=== PATIENT | male | born 1935 | race African-American/Black ===

== ENCOUNTER 2019-01-06 18:05 | Inpatient (IN) | payer MEDICARE, OTHER ==
[~2019-01-06] VITALS: Ht 175.3 cm; Wt 75.0 kg
[~2019-01-06 18:05] MED LIST: METF850T8 PO
[2019-01-06] MEDS ORDERED: IV NORMAL SALINE 1000ML BAG 1,000 ML IV ONE (18:30)
[2019-01-06] MEDS ORDERED: fentaNYL PF VIAL 100 MCG/2 ML VIAL IV ONE (18:30)
--- NOTE | 2019-01-06 18:49 | PHYS DOC ---
Past Medical History Past Medical History: Cancer, CVA, Diabetes-Type II, High Cholesterol, Hypertension, Other Additional Past Medical Histor: prostate CA Past Surgical History: Other Additional Past Surgical Histo: cardiac stent Alcohol Use: None Drug Use: None Adult General Chief Complaint Chief Complaint: WRIST PAIN HPI HPI Patient is a 83 year old male who presents with right wrist pain after a FOOSH. Patient stated he was getting up to go to the bathroom at home and lost his balance while reaching for his walker. He fell towards the wall, held his hand out to catch himself, and fell down onto the floor on his outstretched right hand. He rated the pain as a 10/10 throbbing pain that does not radiate. Patient does not remember hitting his head or losing consciousness. He takes a blood thinner and blood pressure medicine but cannot member the names. Denies neck pain. Family reports concern for patient's generalized weakness. Review of Systems Review of Systems Constitutional: Denies fever or chills [] Eyes: Denies change in visual acuity, redness, or eye pain [] HENT: Denies nasal congestion or sore throat [] Respiratory: Denies cough or shortness of breath [] Cardiovascular: Denies chest pain or palpitations[] GI: Denies abdominal pain, nausea, vomiting, bloody stools or diarrhea [] : Denies dysuria or hematuria [] Musculoskeletal: Admits right wrist pain. Denies elbow or shoulder pain Integument: Admits to abrasion on right hyperthenar eminence Neurologic: Denies headache, focal weakness or sensory changes [] Complete systems were reviewed and found to be within normal limits, except as documented in this note. Current Medications Current Medications Current Medications Medications (Trade) Dose Ordered Sig/[facility] Start Time Stop Time Status Last Admin Dose Admin Fentanyl Citrate (Fentanyl 2ml Vial) 50 mcg 1X ONCE 01/06/19 18:30 01/06/19 18:34 DC 01/06/19 19:30 50 MCG Sodium Chloride 1,000 ml @ 1,000 mls/hr 1X ONCE 01/06/19 18:30 01/06/19 19:29 DC 01/06/19 19:32 1,000 MLS/HR Allergies Allergies Allergies Coded Allergies Type Severity Reaction Last Updated Verified No Known Drug Allergies 06/13/14 No Physical Exam Physical Exam Constitutional: Well developed, well nourished, no acute distress, non-toxic appearance. [] HENT: Normocephalic, atraumatic, bilateral external ears normal, oropharynx moist, no oral exudates, nose normal. [] Eyes: EOMI, conjunctiva normal, no discharge. [] Neck: Normal range of motion, no midline tenderness, supple, no stridor. [] Cardiovascular: Heart rate regular, regular rhythm, no murmur [] Lungs & Thorax: Bilateral breath sounds clear to auscultation [] Abdomen: soft, no tenderness, no masses, no pulsatile masses. 2 Band-Aids on abdomen where he receives shots for prostate cancer.[] Skin: Warm, dry, no erythema, no rash. Straight 3cm superficial abrasion right hypo-thenar eminence extending down into wrist[] Back: No tenderness, no CVA tenderness. [] Extremities: Right wrist tenderness on palpation and attempted ROM, Radial pulse +2, sensation intact, Neurologic: Alert and oriented X 3, normal motor function, normal sensory function, no focal deficits noted. Strength to BLE 4/5. Psychologic: Affect normal, judgement normal, mood normal. [] Current Patient Data Vital Signs Vital Signs Date Time Temp Pulse Resp B/P (MAP) Pulse Ox O2 Delivery O2 Flow Rate FiO2 01/06/19 22:00 72 163/75 (104) 95 Room Air 01/06/19 19:30 16 01/06/19 18:05 97.6 97.6 Lab Values Laboratory Tests Test 01/06/19 18:45 01/06/19 20:00 White Blood Count 8.2 x10^3/uL (4.0-11.0) Red Blood Count 4.37 x10^6/uL (4.30-5.70) Hemoglobin 13.9 g/dL (13.0-17.5) Hematocrit 41.4 % (39.0-53.0) Mean Corpuscular Volume 95 fL (79-100) Mean Corpuscular Hemoglobin 32 pg (25-35) Mean Corpuscular Hemoglobin Concent 34 g/dL (31-37) Red Cell Distribution Width 14.3 % (11.5-14.5) Platelet Count 227 x10^3/uL (140-400) Neutrophils (%) (Auto) 76 % (31-73) H Lymphocytes (%) (Auto) 12 % (24-48) L Monocytes (%) (Auto) 9 % (0-9) Eosinophils (%) (Auto) 2 % (0-3) Basophils (%) (Auto) 0 % (0-3) Neutrophils # (Auto) 6.2 x10^3uL (1.8-7.7) Lymphocytes # (Auto) 1.0 x10^3/uL (1.0-4.8) Monocytes # (Auto) 0.8 x10^3/uL (0.0-1.1) Eosinophils # (Auto) 0.1 x10^3/uL (0.0-0.7) Basophils # (Auto) 0.0 x10^3/uL (0.0-0.2) Prothrombin Time 12.9 SEC (11.7-14.0) Prothrombin Time INR 1.0 (0.8-1.1) PTT 29 SEC (24-38) Sodium Level 139 mmol/L (136-145) Potassium Level 4.0 mmol/L (3.5-5.1) Chloride Level 101 mmol/L (98-107) Carbon Dioxide Level 28 mmol/L (21-32) Anion Gap 10 (6-14) Blood Urea Nitrogen 14 mg/dL (8-26) Creatinine 0.9 mg/dL (0.7-1.3) Estimated GFR (Cockcroft-Gault) 98.0 BUN/Creatinine Ratio 16 (6-20) Glucose Level 226 mg/dL (70-99) H Calcium Level 9.3 mg/dL (8.5-10.1) Magnesium Level 1.7 mg/dL (1.8-2.4) L Total Bilirubin 1.0 mg/dL (0.2-1.0) Aspartate Amino Transferase (AST) 15 U/L (15-37) Alanine Aminotransferase (ALT) 17 U/L (16-63) Alkaline Phosphatase 53 U/L (46-116) Total Protein 7.3 g/dL (6.4-8.2) Albumin 3.3 g/dL (3.4-5.0) L Albumin/Globulin Ratio 0.8 (1.0-1.7) L Urine Collection Type Void Urine Color Yellow Urine Clarity Clear Urine pH 6.5 Urine Specific [place] 1.015 Urine Protein Negative mg/dL (NEG-TRACE) Urine Glucose (UA) 250 mg/dL (NEG) Urine Ketones (Stick) Negative mg/dL (NEG) Urine Blood Negative (NEG) Urine Nitrite Negative (NEG) Urine Bilirubin Negative (NEG) Urine Urobilinogen Dipstick 1.0 mg/dL (0.2 mg/dL) Urine Leukocyte Esterase Negative (NEG) Urine RBC 0 /HPF (0-2) Urine WBC 0 /HPF (0-4) Urine Squamous Epithelial Cells Few /LPF Urine Bacteria 0 /HPF (0-FEW) Laboratory Tests 01/06/19 18:45 Laboratory Tests 01/06/19 18:45 EKG EKG [] Radiology/Procedures Radiology/Procedures PROCEDURE: CT HEAD AND CERVICAL SPINE WO CT head and cervical spine without contrast History: FALL, ON BLOOD THINNER, Technique: Noncontrast CT imaging was performed of the head and cervical spine. Multiplanar reconstruction images are submitted. Exposure: One or more of the following individualized dose reduction techniques were utilized for this examination: 1. Automated exposure control 2. Adjustment of the mA and/or kV according to patient size 3. Use of iterative reconstruction technique. Head CT Comparison: None other than MRI brain exam 08/23/2010 Findings: No acute extra-axial or parenchymal hemorrhage is identified. There is no significant intra-axial mass effect, midline shift, or extra-axial fluid collection. The salgado-white differentiation of the major vascular territories is preserved. There is some scattered [id number] ill-defined low-density of the supratentorial parenchyma bilaterally. The ventricles, sulci, and cisterns are within normal limits in size and configuration. The mastoid air cells and the visualized paranasal sinuses are aerated. There is no significant focal calvarial abnormality. Impression: 1. No acute intracranial abnormality is identified. 2. Scattered ill-defined low-density of the supratentorial parenchyma bilaterally is probably due to chronic microvascular ischemic disease in a patient this age. Cervical spine CT Comparison: None Findings: No acute cervical spine fracture is identified. Vertebral body stature is adequate. AP alignment is within normal limits. There is straightening of cervical spine. There is more advanced degenerative disc disease C5-6 and C6-7, minimally at C4-5. There is multilevel spondylosis greatest C5-C6 and C6-7. There is at least mild narrowing of the far left lateral recess at C5-C6 by disc osteophyte complex, also likely borderline to mild central canal stenosis C6-7 with a greater degree of left lateral recess stenosis at C6-7 by disc osteophyte complex and bulge. There is severe narrowing of the left C6-7 neural foramen in part by uncovertebral and facet degenerative change, also severe narrowing on the right at C5-6, lesser degree of narrowing on the left at C5-6 and C3-C4. There is mild levoscoliosis. Atlanto-axial distance is within normal limits. There is appropriate alignment of lateral masses of C1 relative to C2. Occipital condylar-C1 relationship is maintained. Impression: 1. No acute cervical spine fracture is identified. 2. There is degenerative disc disease and spondylosis greatest C5-6 and C7, at least mild left lateral recess stenosis at these levels. Facet and uncovertebral degenerative change contributes to multilevel neural foramina compromise, more significant narrowing on the left at C6-7, on the right at C5-6, to a somewhat lesser degree on the left at C3-4 and C5-6. Electronically signed by: Simone Dorantes MD (01/06/2019 7:37 PM) [facility] PROCEDURE: WRIST 3V RIGHT WRIST 3V RIGHT History: Injury, mechanical fall on wrist Comparison: None. Findings: 3 views right wrist are submitted. There is comminuted, displaced, intra-articular fracture of the distal radius. There is also somewhat displaced fracture involving the ulnar styloid process. There is bone demineralization. Impression: 1. There is intra-articular fracture of the distal radius, also ulnar styloid process fracture. Electronically signed by: Simone Dorantes MD (01/06/2019 10:10 PM) [facility] Course & Med Decision Making Course & Med Decision Making Pertinent Labs and Imaging studies reviewed. (See chart for details) Patient is an 83-year-old male presents the ED after a fall on outstretched right hand. Family concerned as patient with increased generalized weakness. NIHSS 0. CT head showed no acute intracranial abnormality with low density area supratentorial parenchyma bilaterally suggestive of chronic ischemia. CT neck showed no acute fractures with DJD and spondylosis of C-spine structures. X-ray right wrist with distal radius and ulnar styloid fracture. Splint applied. Labs obtained and posted to chart. Given injury and generalized weakness, patient requiring admission for further evaluation and treatment. Discussed with Dr. Eid (hospitalist) who is in agreement with admit. Routine consult placed for orthopedics. Discussed findings and plan with patient and family, who acknowledge understanding and agreement. [place] Disclaimer Dragon Disclaimer This electronic medical record was generated, in whole or in part, using a voice recognition dictation system. Splinting Splinting : Location: R wrist Hand-Made Type: orthoglass Splint: sugar-tong Pre-Proc Neuro Vasc Exam: normal Post-Proc Neuro Vasc Exam: normal, unchanged from pre-exam Departure Departure Impression: Primary Impression: Weakness generalized Additional Impressions: Fall Right wrist fracture Disposition: ADMITTED INPATIENT Admitting Physician: Other ([place]) Condition: STABLE Referrals: THOMAS SANDERS MD (PCP) Scripts Hydrocodone Bit/Acetaminophen (HYDROCODONE-APAP 7.5-325 ) 1 Tab Tablet 1 TAB PO PRN Q4HRS PRN for PAIN for 6 Days, #18 TAB Prov: RUBI NORIEGA MD 01/08/19 NIHSS Stroke Scale NIH Stroke Scale: NIH Stroke Scale Response (Comments) Value Level of Consciousness: 0 Alert/Responsive 0 LOC Questions: 0 Answers both correctly 0 LOC Commands: 0 Performs both tasks 0 Best Gaze: 0 Normal 0 Visual: 0 No visual loss 0 Facial Palsy: 0 Normal, symmetrical 0 Motor - Left Arm 0 No drift 0 Motor - Right Arm 0 No drift 0 Motor - Left Leg 0 No drift 0 Motor: Right Leg 0 No drift 0 Limb Ataxia: 0 Absent 0 Sensory: 0 No loss 0 Best Language: 0 Normal 0 Dysathria: 0 Normal 0 Extinction and Inattention: 0 Normal 0 Total 0 Problem Qualifiers Additional Impressions: Fall Encounter type: initial encounter Qualified Codes: W19.XXXA - Unspecified fall, initial encounter Right wrist fracture Encounter type: initial encounter Fracture type: closed Qualified Codes: S62.101A - Fracture of unspecified carpal bone, right wrist, initial encounter for closed fracture PIERO ORTIZ DO Jan 06, 2019 18:49
[2019-01-06 18:55] LABS: BASO % 0 % (0-3); EOS # 0.1 x10^3/uL (0.0-0.7); EOS % 2 % (0-3); HEMATOCRIT 41.4 % (39.0-53.0); HEMOGLOBIN 13.9 g/dL (13.0-17.5); LYMPH % 12 % (24-48); MEAN CORPUSCULAR HEMOGLOBIN 32 pg (25-35); MEAN CORPUSCULAR HGB CONC 34 g/dL (31-37); MEAN CORPUSCULAR VOLUME 95 fL (79-100); MONO # 0.8 x10^3/uL (0.0-1.1); MONO % 9 % (0-9); NEUT # 6.2 x10^3uL (1.8-7.7); NEUT % 76 % (31-73); PLATELET COUNT 227 x10^3/uL (140-400); RED BLOOD COUNT 4.37 x10^6/uL (4.30-5.70); RED CELL DISTRIBUTION WIDTH 14.3 % (11.5-14.5); WHITE BLOOD COUNT 8.2 x10^3/uL (4.0-11.0)
[2019-01-06 19:07] LABS: PROTHROMBIN TIME PATIENT 12.9 SEC (11.7-14.0)
[2019-01-06 19:27] LABS: CALCIUM 9.3 mg/dL (8.5-10.1); CREATININE 0.9 mg/dL (0.7-1.3)
[2019-01-06 19:40] LABS: ALBUMIN 3.3 g/dL (3.4-5.0); ALBUMIN/GLOBULIN RATIO 0.8 (1.0-1.7); MAGNESIUM 1.7 mg/dL (1.8-2.4); TOTAL PROTEIN 7.3 g/dL (6.4-8.2)
--- NOTE | 2019-01-06 19:40 | RAD ---
CT head and cervical spine without contrast History: FALL, ON BLOOD THINNER, Technique: Noncontrast CT imaging was performed of the head and cervical spine. Multiplanar reconstruction images are submitted. Exposure: One or more of the following individualized dose reduction techniques were utilized for this examination: 1. Automated exposure control 2. Adjustment of the mA and/or kV according to patient size 3. Use of iterative reconstruction technique. Head CT Comparison: None other than MRI brain exam 08/23/2010 Findings: No acute extra-axial or parenchymal hemorrhage is identified. There is no significant intra-axial mass effect, midline shift, or extra-axial fluid collection. The salgado-white differentiation of the major vascular territories is preserved. There is some scattered [id number] ill-defined low-density of the supratentorial parenchyma bilaterally. The ventricles, sulci, and cisterns are within normal limits in size and configuration. The mastoid air cells and the visualized paranasal sinuses are aerated. There is no significant focal calvarial abnormality. Impression: 1. No acute intracranial abnormality is identified. 2. Scattered ill-defined low-density of the supratentorial parenchyma bilaterally is probably due to chronic microvascular ischemic disease in a patient this age. Cervical spine CT Comparison: None Findings: No acute cervical spine fracture is identified. Vertebral body stature is adequate. AP alignment is within normal limits. There is straightening of cervical spine. There is more advanced degenerative disc disease C5-6 and C6-7, minimally at C4-5. There is multilevel spondylosis greatest C5-C6 and C6-7. There is at least mild narrowing of the far left lateral recess at C5-C6 by disc osteophyte complex, also likely borderline to mild central canal stenosis C6-7 with a greater degree of left lateral recess stenosis at C6-7 by disc osteophyte complex and bulge. There is severe narrowing of the left C6-7 neural foramen in part by uncovertebral and facet degenerative change, also severe narrowing on the right at C5-6, lesser degree of narrowing on the left at C5-6 and C3-C4. There is mild levoscoliosis. Atlanto-axial distance is within normal limits. There is appropriate alignment of lateral masses of C1 relative to C2. Occipital condylar-C1 relationship is maintained. Impression: 1. No acute cervical spine fracture is identified. 2. There is degenerative disc disease and spondylosis greatest C5-6 and C7, at least mild left lateral recess stenosis at these levels. Facet and uncovertebral degenerative change contributes to multilevel neural foramina compromise, more significant narrowing on the left at C6-7, on the right at C5-6, to a somewhat lesser degree on the left at C3-4 and C5-6. Electronically signed by: Simone Dorantes MD (01/06/2019 7:37 PM) [facility]
[2019-01-06 21:17] LABS: BILIRUBIN,URINE NEGATIVE (NEG); CLARITY,URINE CLEAR; COLOR,URINE YELLOW; NITRITE,URINE NEGATIVE (NEG); PH,URINE 6.5; PROTEIN,URINE NEGATIVE (NEG-TRACE)
[2019-01-06 21:37] LABS: BACTERIA,URINE 0 /HPF (0-FEW); RBC,URINE 0 /HPF (0-2); SQUAMOUS EPITHELIAL CELL,UR FEW /LPF; WBC,URINE 0 /HPF (0-4)
--- NOTE | 2019-01-06 22:13 | RAD ---
WRIST 3V RIGHT History: Injury, mechanical fall on wrist Comparison: None. Findings: 3 views right wrist are submitted. There is comminuted, displaced, intra-articular fracture of the distal radius. There is also somewhat displaced fracture involving the ulnar styloid process. There is bone demineralization. Impression: 1. There is intra-articular fracture of the distal radius, also ulnar styloid process fracture. Electronically signed by: Simone Dorantes MD (01/06/2019 10:10 PM) [facility]
[2019-01-06] MEDS ORDERED: DEXTROSE 50% 25 GM / 50ML DISP.SYRIN. IV PRN (22:30)
[2019-01-06] MEDS: fentaNYL PF VIAL 100 MCG/2 ML VIAL IV PRN (22:45)
[2019-01-06 23:23] VITALS: BP 181/87
--- NOTE | 2019-01-07 01:00 | NUR ---
ADMIT The patient, Rigo Catalan, 83 y/o, M admitted by Dr. Eid, was given written information regarding hospital policies, unit procedures and contact persons. Pt. A&O x4, afebrile, and c/o moderate pain. Pt medications reviewed, admission assessment complete, and plan of care reviewed. Valuables were checked and taken home with family. Pt. call light in reach, and will continue to monitor.
[2019-01-07] MEDS: fentaNYL PF VIAL 100 MCG/2 ML VIAL IV PRN ×2 (02:56→07:50)
[2019-01-07 03:00] VITALS: BP 143/68
[2019-01-07] MEDS ORDERED: ATOR40TA59 PO (05:24)
[2019-01-07] MEDS ORDERED: CLOP75TA PO (05:24)
[2019-01-07] MEDS ORDERED: ASPI-612 PO (05:24)
[2019-01-07] MEDS ORDERED: CARV6.25 PO (05:24)
[2019-01-07] MEDS ORDERED: MULT1TAB52 PO (05:52)
[2019-01-07] MEDS ORDERED: METF10007 PO (05:52)
[2019-01-07] MEDS ORDERED: CYAN10005 PO (05:52)
[2019-01-07] MEDS ORDERED: FERR325T14 PO (05:52)
[2019-01-07] MEDS ORDERED: ABIR250T PO (05:52)
[2019-01-07] MEDS ORDERED: SILO8CAP2 PO (05:52)
[2019-01-07] MEDS ORDERED: FAMO20TA5 PO (05:52)
[2019-01-07] MEDS ORDERED: PRED2.5T PO (05:52)
[2019-01-07] MEDS ORDERED: LISI10TA2 PO (05:52)
[2019-01-07] MEDS ORDERED: GLIP5TAB10 PO (05:52)
[2019-01-07 07:00] VITALS: BP 155/69
[2019-01-07] MEDS ORDERED: HYDROcodone/APAP 5/325MG 1 TAB TABLET PO PRN (08:00)
[2019-01-07] MEDS ORDERED: ONDANSETRON PF 4 MG/2 ML VIAL. IV PRN (08:00)
[2019-01-07] MEDS ORDERED: ACETAMINOPHEN 325 MG TABLET. PO PRN (08:00)
[2019-01-07] MEDS ORDERED: MAGNESIUM HYDROXIDE 2,400 MG/30 ML ORAL.SUSP. PO PRN (08:00)
--- NOTE | 2019-01-07 08:07 | PDOC1 ---
History and Physical Date of Admission Date of Admission DATE: 01/07/19 TIME: 07:54 Identification/Chief Complaint Chief Complaint Fall Source Source: Caregiver, Chart review, Patient History of Present Illness History of Present Illness 83 yo w/ PMHx prostate cancer, DM2, HTN, CAD, prior CVA who presents with wrist pain after a fall. Patient stated he was getting up to go to the bathroom at home and lost his balance while reaching for his walker. He fell towards the wall, held his hand out to catch himself, and fell down onto the floor on his outstretched right hand. The pain is located on the left ulnar headache and slightly medial. He rated the pain as a 10/10 throbbing pain that does not radiate. Patient does not remember hitting his head or losing consciousness. He did have a stroke affecting the left side of his body several years ago, treated at , with resolution of symptoms. There is no history of seizure or head injury. He states the pain is not as well controlled with 5mg hydrocodone as he would like, still 6/10 now. Past Medical History Cardiovascular: CAD, HTN Pulmonary: No pertinent hx CENTRAL NERVOUS SYSTEM: Carpal Tunnel Syndrome GI: No pertinent hx Heme/Onc: Cancer Hepatobiliary: No pertinent hx Psych: No pertinent hx Rheumatologic: No pertinent hx Infectious disease: No pertinent hx ENT: No pertinent hx Renal/: Prostate Ca. Endocrine: Diabetes Dermatology: No pertinent hx Past Surgical History Past Surgical History: No pertinent history Family History Family History: Diabetes, High Cholestrol, Hypertension Social History Smoke: No ALCOHOL: none Drugs: None Current Problem List Problem List Problems Medical Problems: (1) Fall Status: Acute (2) Right wrist fracture Status: Acute (3) Weakness generalized Status: Acute Current Medications Current Medications Current Medications Sodium Chloride 1,000 ml @ 1,000 mls/hr 1X ONCE IV Last administered on at 19:32; Start 01/06/19 at 18:30; Stop 01/06/19 at 19:29; Status DC Fentanyl Citrate (Fentanyl 2ml Vial) 50 mcg 1X ONCE IV Last administered on 01/06/19at 19:30; Start 01/06/19 at 18:30; Stop 01/06/19 at 18:34; Status DC Insulin Human Lispro (HumaLOG) 0-5 UNITS TIDWMEALS SQ ; Start 01/07/19 at 08:00 Dextrose (Dextrose 50%-Water Syringe) 12.5 gm PRN Q15MIN PRN IV SEE COMMENTS; Start 01/06/19 at 22:30 Fentanyl Citrate (Fentanyl 2ml Vial) 50 mcg PRN Q3HRS PRN IV MODERATE PAIN Last administered on 01/07/19at 07:50; Start 01/06/19 at 22:45; Stop 01/07/19 at 07: 50; Status DC Active Scripts Active Reported Glipizide 5 Mg Tablet 0.5 Tab PO DAILYWBKFT Zytiga (Abiraterone Acetate) 250 Mg Tablet 1,000 Mg PO DAILY Vitamin B-12 (Cyanocobalamin (Vitamin B-12)) 1,000 Mcg Tablet 1 Tab PO DAILY Rapaflo (Silodosin) 8 Mg Capsule 4 Mg PO DAILY Prednisone 2.5 Mg Tablet 2 Tab PO BID Multivitamins (Multivitamin) 1 Each Tablet 1 Tab PO DAILY Lisinopril 10 Mg Tablet 1 Tab PO DAILY Ferrous Sulfate 325 Mg Tablet 325 Mg PO DAILYWBKFT Famotidine 20 Mg Tablet 20 Mg PO HS Metformin Hcl 1,000 Mg Tablet 1,000 Mg PO BIDWMEALS Clopidogrel (Clopidogrel Bisulfate) 75 Mg Tablet 75 Mg PO DAILY Coreg (Carvedilol) 6.25 Mg Tablet 6.25 Mg PO BID Atorvastatin Calcium 40 Mg Tablet 40 Mg PO DAILY Aspirin Ec (Aspirin) 81 Mg Tablet.dr 81 Mg PO DAILY Allergies Allergies: Coded Allergies: No Known Drug Allergies (Unverified , 06/13/14) ROS General: YES: Fatigue, Malaise; No: Chills, Night Sweats, Appetite, Other PSYCHOLOGICAL ROS: No: Anxiety, Behavioral Disorder, Concentration difficultie , Decreased libido, Depression, Disorientation, Hallucinations, Hostility, Irritablity, Memory difficulties, Mood Swings, Obsessive thoughts, Physical abuse, Sexual abuse, Sleep disturbances, Suicidal ideation, Other Eyes: No Blurry vision, No Decreased vision, No Double vision, No Dry eyes, No Excessive tearing, No Eye Pain, No Itchy Eyes, No Loss of vision, No Photophobia , No Scotomata, No Uses contacts, No Uses glasses, No Other HEENT: No: Heacaches, Visual Changes, Hearing change, Nasal congestion, Nasal discharge, Oral lesions, Sinus pain, Sore Throat, Epistaxis, Sneezing, Snoring, Tinnitus, Vertigo, Vocal changes, Other ALLERGY AND IMMUNOLOGY: No: Hives, Insect Bite Sensitivity, Itchy/Watery Eyes, Nasal Congestion, Post Nasal Drip, Seasonal Allergies, Other Hematological and Lymphatic: No: Bleeding Problems, Blood Clots, Blood Transfusions, Brusing, Night Sweats, Pallor, Swollen Lymph Nodes, Other ENDOCRINE: No: Breast Changes, Galactorrhea, Hair Pattern Changes, Hot Flashes , Malaise/lethargy, Mood Swings, Palpitations, Polydipsia/polyuria, Skin Changes , Temperature Intolerance, Unexpected Weight Changes, Other Breast: No New/Changing Breast Lumps, No Nipple changes, No Nipple discharge, No Other Respiratory: No: Cough, Hemoptysis, Orthopnea, Pleuritic Pain, Shortness of breath, SOB with excertion, Sputum Changes, Stridor, Tachypnea, Wheezing, Other Cardiovascular: No Chest Pain, No Palpitations, No Orthopnea, No Paroxysmal Noc. Dyspnea, No Edema, No Lt Headedness, No Other Gastrointestinal: Yes Nausea; No Vomiting, No Abdominal Pain, No Diarrhea, No Constipation, No Melena, No Hematochezia, No Other Genitourinary: No Dysuria, No Frequency, No Incontinence, No Hematuria, No Retention, No Discharge, No Urgency, No Pain, No Flank Pain, No Other, No , No , No , No , No , No , No Musculoskeletal: Yes Gait Disturbance, Yes Joint Swelling, Yes Muscle Pain; No Joint Pain, No Joint Stiffness, No Muscular Weakness, No Pain In:, No Swelling In:, No Other Neurological: Yes Dizziness, Yes Gait Disturbance; No Behavorial Changes, No Bowel/Bladder ControlChng, No Confusion, No Headaches, No Impaired Coord/balance, No Memory Loss, No Numbness/Tingling, No Seizures, No Speech Problems, No Tremors, No Visual Changes, No Weakness, No Other Skin: No Dry Skin, No Eczema, No Hair Changes, No Lumps, No Mole Changes, No Mottling, No Nail Changes, No Pruritus, No Rash, No Skin Lesion Changes, No Other, No Acne Physical Exam General: Alert, Oriented X3, Cooperative, No acute distress HEENT: Atraumatic, PERRLA, EOMI, Mucous membr. moist/pink Lungs: Clear to auscultation, Normal air movement Heart: S1S2, RRR, no gallops, no murmurs Abdomen: Normal bowel sounds, Soft, No tenderness, No hepatosplenomegaly, No masses Rectal Exam: not examined Extremities: No clubbing, No cyanosis, No edema, Normal pulses, Other (Right arm in sling, hand swollen, pulses intact) Skin: No rashes, No breakdown, No significant lesion Neuro: Normal speech, Strength at 5/5 X4 ext, Normal tone, Sensation intact, Cranial nerves 3-12 NL, Reflexes 2+ Psych/Mental Status: Mental status NL, Mood NL Vitals Vitals Vital Signs Date Time Temp Pulse Resp B/P (MAP) Pulse Ox O2 Delivery O2 Flow Rate FiO2 01/07/19 07:50 16 Room Air 01/07/19 03:00 97.7 77 143/68 (93) 96 97.7 Labs Labs Laboratory Tests Test 01/06/19 18:45 01/06/19 20:00 01/06/19 23:45 01/07/19 01:18 White Blood Count 8.2 x10^3/uL (4.0-11.0) Red Blood Count 4.37 x10^6/uL (4.30-5.70) Hemoglobin 13.9 g/dL (13.0-17.5) Hematocrit 41.4 % (39.0-53.0) Mean Corpuscular Volume 95 fL (79-100) Mean Corpuscular Hemoglobin 32 pg (25-35) Mean Corpuscular Hemoglobin Concent 34 g/dL (31-37) Red Cell Distribution Width 14.3 % (11.5-14.5) Platelet Count 227 x10^3/uL (140-400) Neutrophils (%) (Auto) 76 % (31-73) Lymphocytes (%) (Auto) 12 % (24-48) Monocytes (%) (Auto) 9 % (0-9) Eosinophils (%) (Auto) 2 % (0-3) Basophils (%) (Auto) 0 % (0-3) Neutrophils # (Auto) 6.2 x10^3uL (1.8-7.7) Lymphocytes # (Auto) 1.0 x10^3/uL (1.0-4.8) Monocytes # (Auto) 0.8 x10^3/uL (0.0-1.1) Eosinophils # (Auto) 0.1 x10^3/uL (0.0-0.7) Basophils # (Auto) 0.0 x10^3/uL (0.0-0.2) Prothrombin Time 12.9 SEC (11.7-14.0) Prothromb Time International Ratio 1.0 (0.8-1.1) Activated Partial Thromboplast Time 29 SEC (24-38) Sodium Level 139 mmol/L (136-145) Potassium Level 4.0 mmol/L (3.5-5.1) Chloride Level 101 mmol/L (98-107) Carbon Dioxide Level 28 mmol/L (21-32) Anion Gap 10 (6-14) Blood Urea Nitrogen 14 mg/dL (8-26) Creatinine 0.9 mg/dL (0.7-1.3) Estimated GFR (Cockcroft-Gault) 98.0 BUN/Creatinine Ratio 16 (6-20) Glucose Level 226 mg/dL (70-99) Calcium Level 9.3 mg/dL (8.5-10.1) Magnesium Level 1.7 mg/dL (1.8-2.4) Total Bilirubin 1.0 mg/dL (0.2-1.0) Aspartate Amino Transf (AST/SGOT) 15 U/L (15-37) Alanine Aminotransferase (ALT/SGPT) 17 U/L (16-63) Alkaline Phosphatase 53 U/L (46-116) Total Protein 7.3 g/dL (6.4-8.2) Albumin 3.3 g/dL (3.4-5.0) Albumin/Globulin Ratio 0.8 (1.0-1.7) Urine Collection Type Void Urine Color Yellow Urine Clarity Clear Urine pH 6.5 Urine Specific [place] 1.015 Urine Protein Negative mg/dL (NEG-TRACE) Urine Glucose (UA) 250 mg/dL (NEG) Urine Ketones (Stick) Negative mg/dL (NEG) Urine Blood Negative (NEG) Urine Nitrite Negative (NEG) Urine Bilirubin Negative (NEG) Urine Urobilinogen Dipstick 1.0 mg/dL (0.2 mg/dL) Urine Leukocyte Esterase Negative (NEG) Urine RBC 0 /HPF (0-2) Urine WBC 0 /HPF (0-4) Urine Squamous Epithelial Cells Few /LPF Urine Bacteria 0 /HPF (0-FEW) Glucose (Fingerstick) 237 mg/dL (70-99) Troponin I Quantitative < 0.017 ng/mL (0.000-0.055) Test 01/07/19 04:03 01/07/19 07:15 Troponin I Quantitative < 0.017 ng/mL (0.000-0.055) Glucose (Fingerstick) 228 mg/dL (70-99) Laboratory Tests Test 01/06/19 18:45 01/06/19 20:00 01/06/19 23:45 01/07/19 01:18 White Blood Count 8.2 x10^3/uL (4.0-11.0) Red Blood Count 4.37 x10^6/uL (4.30-5.70) Hemoglobin 13.9 g/dL (13.0-17.5) Hematocrit 41.4 % (39.0-53.0) Mean Corpuscular Volume 95 fL (79-100) Mean Corpuscular Hemoglobin 32 pg (25-35) Mean Corpuscular Hemoglobin Concent 34 g/dL (31-37) Red Cell Distribution Width 14.3 % (11.5-14.5) Platelet Count 227 x10^3/uL (140-400) Neutrophils (%) (Auto) 76 % (31-73) Lymphocytes (%) (Auto) 12 % (24-48) Monocytes (%) (Auto) 9 % (0-9) Eosinophils (%) (Auto) 2 % (0-3) Basophils (%) (Auto) 0 % (0-3) Neutrophils # (Auto) 6.2 x10^3uL (1.8-7.7) Lymphocytes # (Auto) 1.0 x10^3/uL (1.0-4.8) Monocytes # (Auto) 0.8 x10^3/uL (0.0-1.1) Eosinophils # (Auto) 0.1 x10^3/uL (0.0-0.7) Basophils # (Auto) 0.0 x10^3/uL (0.0-0.2) Prothrombin Time 12.9 SEC (11.7-14.0) Prothromb Time International Ratio 1.0 (0.8-1.1) Activated Partial Thromboplast Time 29 SEC (24-38) Sodium Level 139 mmol/L (136-145) Potassium Level 4.0 mmol/L (3.5-5.1) Chloride Level 101 mmol/L (98-107) Carbon Dioxide Level 28 mmol/L (21-32) Anion Gap 10 (6-14) Blood Urea Nitrogen 14 mg/dL (8-26) Creatinine 0.9 mg/dL (0.7-1.3) Estimated GFR (Cockcroft-Gault) 98.0 BUN/Creatinine Ratio 16 (6-20) Glucose Level 226 mg/dL (70-99) Calcium Level 9.3 mg/dL (8.5-10.1) Magnesium Level 1.7 mg/dL (1.8-2.4) Total Bilirubin 1.0 mg/dL (0.2-1.0) Aspartate Amino Transf (AST/SGOT) 15 U/L (15-37) Alanine Aminotransferase (ALT/SGPT) 17 U/L (16-63) Alkaline Phosphatase 53 U/L (46-116) Total Protein 7.3 g/dL (6.4-8.2) Albumin 3.3 g/dL (3.4-5.0) Albumin/Globulin Ratio 0.8 (1.0-1.7) Urine Collection Type Void Urine Color Yellow Urine Clarity Clear Urine pH 6.5 Urine Specific [place] 1.015 Urine Protein Negative mg/dL (NEG-TRACE) Urine Glucose (UA) 250 mg/dL (NEG) Urine Ketones (Stick) Negative mg/dL (NEG) Urine Blood Negative (NEG) Urine Nitrite Negative (NEG) Urine Bilirubin Negative (NEG) Urine Urobilinogen Dipstick 1.0 mg/dL (0.2 mg/dL) Urine Leukocyte Esterase Negative (NEG) Urine RBC 0 /HPF (0-2) Urine WBC 0 /HPF (0-4) Urine Squamous Epithelial Cells Few /LPF Urine Bacteria 0 /HPF (0-FEW) Glucose (Fingerstick) 237 mg/dL (70-99) Troponin I Quantitative < 0.017 ng/mL (0.000-0.055) Test 01/07/19 04:03 01/07/19 07:15 Troponin I Quantitative < 0.017 ng/mL (0.000-0.055) Glucose (Fingerstick) 228 mg/dL (70-99) Images Images Right wrist - 1. There is intra-articular fracture of the distal radius, also ulnar styloid process fracture. Head CT - 1. No acute intracranial abnormality is identified. 2. Scattered ill-defined low-density of the supratentorial parenchyma bilaterally is probably due to chronic microvascular ischemic disease in a patient this age. Cervical CT - 1. No acute cervical spine fracture is identified. 2. There is degenerative disc disease and spondylosis greatest C5-6 and C7, at least mild left lateral recess stenosis at these levels. Facet and uncovertebral degenerative change contributes to multilevel neural foramina compromise, more significant narrowing on the left at C6-7, on the right at C5-6, to a somewhat lesser degree on the left at C3-4 and C5-6. VTE Prophylaxis Ordered VTE Prophylaxis Devices: No VTE Pharmacological Prophylaxi: Yes Assessment/Plan Assessment/Plan A/P: Right wrist fracture - non-operative at this point, will increase hydrocodone to 7.5mg. Ortho consulted. Cont sling. OT to see. PT as well Fall - with prior CVA, will have neurology to see, PT as well Prostate cancer - on maintenance therapy DM2 - sliding scale in house HTN - cont meds CAD - cont meds, stable, history of stenting FEN - ADA cardiac PPX - Heparin FULL CODE Inpatient for right wrist fracture, falls with multiple co-morbids. May need rehab services on d/c RUBI NORIEGA MD Jan 07, 2019 08:07
[2019-01-07] MEDS ORDERED: MAGNESIUM SULFATE 2GM 50 ML IV ONE (08:30)
[2019-01-07] MEDS: NON FORMULARY ITEM (Abiraterone Acetate (Zytiga) 1,000 MG) PO SCH (09:00)
[2019-01-07] MEDS: INSULIN LISPRO 300 UNITS/3 ML INSULN.PEN. SQ SCH ×3 (09:25→16:56)
[2019-01-07] MEDS: TAMSULOSIN 0.4 MG CAP.ER.24H. PO SCH (09:33)
[2019-01-07] MEDS: ASPIRIN ENTERIC COATED 81 MG TABLET.DR. PO SCH (09:33)
[2019-01-07] MEDS: CARVEDILOL 6.25 MG TABLET. PO SCH ×2 (09:33→16:54)
[2019-01-07] MEDS: LISINOPRIL 10 MG TABLET PO SCH (09:34)
[2019-01-07] MEDS: SENNOSIDES/DOCUSATE 8.6/50MG TABLET. PO SCH ×2 (09:34→21:40)
[2019-01-07] MEDS: FERROUS SULFATE 325 MG TABLET. PO SCH (09:34)
[2019-01-07] MEDS: MULTIVITAMIN with MINERAL TABLET. PO SCH (09:34)
[2019-01-07] MEDS: CYANOCOBALAMIN (VITAMIN B-12) 1,000 MCG TABLET. PO SCH (09:34)
[2019-01-07] MEDS: CLOPIDOGREL BISULFATE 75 MG TABLET PO SCH (09:34)
[2019-01-07] MEDS: glipiZIDE 5 MG TABLET PO SCH (09:35)
--- NOTE | 2019-01-07 09:50 | PDOC2 ---
NEUROLOGY CONSULT Date of Admission Date of Admission DATE: 01/07/19 TIME: 09:43 Reason for Consult Reason for Consult: Generalized weakness Referring Physician Referring Physician: Dr. Leary Source Source: Chart review, Patient History of Present Illness History of Present Illness The patient is an 83-year-old right-handed male who has been using a walker for the last several months because he feels off balance. He does not have vertigo or lightheadedness. He is fine as long as he is sitting or lying down, only when he stands up. He does have a long history of diabetes. He does have some numbness in his feet. He denies the neck or back pain. He did have a stroke affecting the left side of his body several years ago, treated at , with resolution of symptoms. There is no history of seizure or head injury. Past Medical History Cardiovascular: CAD, HTN, Hyperlipidemia Pulmonary: Asthma CENTRAL NERVOUS SYSTEM: CVA GI: GERD Heme/Onc: Anemia NOS Renal/: Prostate Ca., Urinary Incontinence ( also urgency and retention) Endocrine: Diabetes Past Surgical History Past Surgical History: Other (Coronary stent) Family History Family History: No pertinent hx Social History Social History , retired, occasional alcohol, no tobacco Current Medications Current Medications Current Medications Sodium Chloride 1,000 ml @ 1,000 mls/hr 1X ONCE IV Last administered on at 19:32; Start 01/06/19 at 18:30; Stop 01/06/19 at 19:29; Status DC Fentanyl Citrate (Fentanyl 2ml Vial) 50 mcg 1X ONCE IV Last administered on 01/06/19at 19:30; Start 01/06/19 at 18:30; Stop 01/06/19 at 18:34; Status DC Insulin Human Lispro (HumaLOG) 0-5 UNITS TIDWMEALS SQ Last administered on at 09:25; Start 01/07/19 at 08:00 Dextrose (Dextrose 50%-Water Syringe) 12.5 gm PRN Q15MIN PRN IV SEE COMMENTS; Start 01/06/19 at 22:30 Fentanyl Citrate (Fentanyl 2ml Vial) 50 mcg PRN Q3HRS PRN IV MODERATE PAIN Last administered on 01/07/19at 07:50; Start 01/06/19 at 22:45; Stop 01/07/19 at 07: 50; Status DC Magnesium Sulfate 50 ml @ 25 mls/hr 1X ONCE IV Last administered on 01/07/19at 09:38; Start 01/07/19 at 08:30; Stop 01/07/19 at 10:29 Ondansetron HCl (Zofran) 4 mg PRN Q6HRS PRN IV NAUSEA/VOMITING; Start 01/07/19 at 08:00 Acetaminophen/ Hydrocodone Bitart (Lortab 5/325) 1 tab PRN Q4HRS PRN PO MODERATE-SEVERE PAIN; Start 01/07/19 at 08:00 Acetaminophen (Tylenol) 650 mg PRN Q6HRS PRN PO Headaches, Temp > 101.5F; Start 01/07/19 at 08:00 Senna/Docusate Sodium (Senna Plus) 1 tab BID PO Last administered on 01/07/19 09:34; Start 01/07/19 at 09:00 Magnesium Hydroxide (Milk Of Magnesia) 2,400 mg PRN Q12HR PRN PO CONSTIPATION; Start 01/07/19 at 08:00 Heparin Sodium (Porcine) (Heparin Sodium) 5,000 unit Q8HRS SQ ; Start 01/07/19 at 14:00 Aspirin (Ecotrin) 81 mg DAILY PO Last administered on 01/07/19 09:33; Start 01/07/19 at 09:00 Atorvastatin Calcium (Lipitor) 40 mg QHS PO ; Start 01/07/19 at 21:00 Carvedilol (Coreg) 6.25 mg BIDWMEALS PO Last administered on 01/07/19at 09:33; Start 01/07/19 at 09:00 Clopidogrel Bisulfate (Plavix) 75 mg DAILY PO Last administered on 01/07/19 09: 34; Start 01/07/19 at 09:00 Cyanocobalamin (Vitamin B-12) 1,000 mcg DAILY PO Last administered on 01/07/19 09:34; Start 01/07/19 at 09:00 Famotidine (Pepcid) 20 mg HS PO ; Start 01/07/19 at 21:00 Ferrous Sulfate (Feosol) 325 mg DAILYWBKFT PO Last administered on 01/07/19at 09: 34; Start 01/07/19 at 09:00 Glipizide (Glucotrol) 2.5 mg DAILYWBKFT PO Last administered on 01/07/19 09:35 ; Start 01/07/19 at 09:00 Lisinopril (Prinivil) 10 mg DAILY PO Last administered on 01/07/19at 09:34; Start 01/07/19 at 09:00 Non-Formulary Medication (Abiraterone Acetate (Zytiga)) 1,000 mg DAILY PO ; Start 01/07/19 at 09:00; Status UNV Multivitamins (Thera M Plus) 1 tab DAILY PO Last administered on 01/07/19at 09:34 ; Start 01/07/19 at 09:00 Tamsulosin HCl (Flomax) 0.4 mg DAILY PO Last administered on 01/07/19 09:33; Start 01/07/19 at 09:00 Active Scripts Active Reported Glipizide 5 Mg Tablet 0.5 Tab PO DAILYWBKFT Zytiga (Abiraterone Acetate) 250 Mg Tablet 1,000 Mg PO DAILY Vitamin B-12 (Cyanocobalamin (Vitamin B-12)) 1,000 Mcg Tablet 1 Tab PO DAILY Rapaflo (Silodosin) 8 Mg Capsule 4 Mg PO DAILY Prednisone 2.5 Mg Tablet 2 Tab PO BID Multivitamins (Multivitamin) 1 Each Tablet 1 Tab PO DAILY Lisinopril 10 Mg Tablet 1 Tab PO DAILY Ferrous Sulfate 325 Mg Tablet 325 Mg PO DAILYWBKFT Famotidine 20 Mg Tablet 20 Mg PO HS Metformin Hcl 1,000 Mg Tablet 1,000 Mg PO BIDWMEALS Clopidogrel (Clopidogrel Bisulfate) 75 Mg Tablet 75 Mg PO DAILY Coreg (Carvedilol) 6.25 Mg Tablet 6.25 Mg PO BID Atorvastatin Calcium 40 Mg Tablet 40 Mg PO DAILY Aspirin Ec (Aspirin) 81 Mg Tablet.dr 81 Mg PO DAILY Allergies Allergies: Coded Allergies: No Known Drug Allergies (Unverified , 06/13/14) ROS Review of System Negative for fever, chills, weight loss, shortness of breath, chest pain, indigestion, hematochezia, melena, and dysuria. Full 14-point review of systems is negative. Physical Exam Physical Examination General: Well-developed, well-nourished black male in no acute distress HEENT: Normocephalic andatraumatic.Temporal arteriespulsatile and nontender. Neck: Supple without bruit, no meningismus Musculoskeletal: Stability:see neurologic. Gait exam:see neurologic. Tone:see neurologic. Strength:see neurologic. Neurological: Mental Status:intact, orientation, memory, attention span/concentration, language, fund of knowledge normal. Cranial Nerves:Pupils equal and reactive to light, extraocular movements areintact, visual chacko are full to confrontation. Facial sensation is normal. There is no facial asymmetry. Vestibulo-ocular reflex is intact. Palate elevates and tongue protrudes in midline. All other cranial related problems are negative except as mentioned before.Reflexes:2+ and symmetric with flexor plantar responses. Motor:5/5 strength with normal tone and bulk, but I cannot test the right arm as it is in a sling. Coordination:Finger-nose finger (left arm only) and [id number] testing are normal. Rapid alternating movements and fine finger movements are intact. Gait: not tested. Sensory: stocking loss. Vitals VITALS Vital Signs Date Time Temp Pulse Resp B/P (MAP) Pulse Ox O2 Delivery O2 Flow Rate FiO2 01/07/19 09:34 74 155/69 01/07/19 07:50 16 Room Air 01/07/19 07:00 97.9 96 97.9 Labs Labs Laboratory Tests Test 01/06/19 18:45 01/06/19 20:00 01/06/19 23:45 01/07/19 01:18 White Blood Count 8.2 x10^3/uL (4.0-11.0) Red Blood Count 4.37 x10^6/uL (4.30-5.70) Hemoglobin 13.9 g/dL (13.0-17.5) Hematocrit 41.4 % (39.0-53.0) Mean Corpuscular Volume 95 fL (79-100) Mean Corpuscular Hemoglobin 32 pg (25-35) Mean Corpuscular Hemoglobin Concent 34 g/dL (31-37) Red Cell Distribution Width 14.3 % (11.5-14.5) Platelet Count 227 x10^3/uL (140-400) Neutrophils (%) (Auto) 76 % (31-73) Lymphocytes (%) (Auto) 12 % (24-48) Monocytes (%) (Auto) 9 % (0-9) Eosinophils (%) (Auto) 2 % (0-3) Basophils (%) (Auto) 0 % (0-3) Neutrophils # (Auto) 6.2 x10^3uL (1.8-7.7) Lymphocytes # (Auto) 1.0 x10^3/uL (1.0-4.8) Monocytes # (Auto) 0.8 x10^3/uL (0.0-1.1) Eosinophils # (Auto) 0.1 x10^3/uL (0.0-0.7) Basophils # (Auto) 0.0 x10^3/uL (0.0-0.2) Prothrombin Time 12.9 SEC (11.7-14.0) Prothromb Time International Ratio 1.0 (0.8-1.1) Activated Partial Thromboplast Time 29 SEC (24-38) Sodium Level 139 mmol/L (136-145) Potassium Level 4.0 mmol/L (3.5-5.1) Chloride Level 101 mmol/L (98-107) Carbon Dioxide Level 28 mmol/L (21-32) Anion Gap 10 (6-14) Blood Urea Nitrogen 14 mg/dL (8-26) Creatinine 0.9 mg/dL (0.7-1.3) Estimated GFR (Cockcroft-Gault) 98.0 BUN/Creatinine Ratio 16 (6-20) Glucose Level 226 mg/dL (70-99) Calcium Level 9.3 mg/dL (8.5-10.1) Magnesium Level 1.7 mg/dL (1.8-2.4) Total Bilirubin 1.0 mg/dL (0.2-1.0) Aspartate Amino Transf (AST/SGOT) 15 U/L (15-37) Alanine Aminotransferase (ALT/SGPT) 17 U/L (16-63) Alkaline Phosphatase 53 U/L (46-116) Total Protein 7.3 g/dL (6.4-8.2) Albumin 3.3 g/dL (3.4-5.0) Albumin/Globulin Ratio 0.8 (1.0-1.7) Urine Collection Type Void Urine Color Yellow Urine Clarity Clear Urine pH 6.5 Urine Specific Wilson 1.015 Urine Protein Negative mg/dL (NEG-TRACE) Urine Glucose (UA) 250 mg/dL (NEG) Urine Ketones (Stick) Negative mg/dL (NEG) Urine Blood Negative (NEG) Urine Nitrite Negative (NEG) Urine Bilirubin Negative (NEG) Urine Urobilinogen Dipstick 1.0 mg/dL (0.2 mg/dL) Urine Leukocyte Esterase Negative (NEG) Urine RBC 0 /HPF (0-2) Urine WBC 0 /HPF (0-4) Urine Squamous Epithelial Cells Few /LPF Urine Bacteria 0 /HPF (0-FEW) Glucose (Fingerstick) 237 mg/dL (70-99) Troponin I Quantitative < 0.017 ng/mL (0.000-0.055) Test 01/07/19 04:03 01/07/19 07:15 Troponin I Quantitative < 0.017 ng/mL (0.000-0.055) Glucose (Fingerstick) 228 mg/dL (70-99) Laboratory Tests Test 01/06/19 18:45 01/06/19 20:00 01/06/19 23:45 01/07/19 01:18 White Blood Count 8.2 x10^3/uL (4.0-11.0) Red Blood Count 4.37 x10^6/uL (4.30-5.70) Hemoglobin 13.9 g/dL (13.0-17.5) Hematocrit 41.4 % (39.0-53.0) Mean Corpuscular Volume 95 fL (79-100) Mean Corpuscular Hemoglobin 32 pg (25-35) Mean Corpuscular Hemoglobin Concent 34 g/dL (31-37) Red Cell Distribution Width 14.3 % (11.5-14.5) Platelet Count 227 x10^3/uL (140-400) Neutrophils (%) (Auto) 76 % (31-73) Lymphocytes (%) (Auto) 12 % (24-48) Monocytes (%) (Auto) 9 % (0-9) Eosinophils (%) (Auto) 2 % (0-3) Basophils (%) (Auto) 0 % (0-3) Neutrophils # (Auto) 6.2 x10^3uL (1.8-7.7) Lymphocytes # (Auto) 1.0 x10^3/uL (1.0-4.8) Monocytes # (Auto) 0.8 x10^3/uL (0.0-1.1) Eosinophils # (Auto) 0.1 x10^3/uL (0.0-0.7) Basophils # (Auto) 0.0 x10^3/uL (0.0-0.2) Prothrombin Time 12.9 SEC (11.7-14.0) Prothromb Time International Ratio 1.0 (0.8-1.1) Activated Partial Thromboplast Time 29 SEC (24-38) Sodium Level 139 mmol/L (136-145) Potassium Level 4.0 mmol/L (3.5-5.1) Chloride Level 101 mmol/L (98-107) Carbon Dioxide Level 28 mmol/L (21-32) Anion Gap 10 (6-14) Blood Urea Nitrogen 14 mg/dL (8-26) Creatinine 0.9 mg/dL (0.7-1.3) Estimated GFR (Cockcroft-Gault) 98.0 BUN/Creatinine Ratio 16 (6-20) Glucose Level 226 mg/dL (70-99) Calcium Level 9.3 mg/dL (8.5-10.1) Magnesium Level 1.7 mg/dL (1.8-2.4) Total Bilirubin 1.0 mg/dL (0.2-1.0) Aspartate Amino Transf (AST/SGOT) 15 U/L (15-37) Alanine Aminotransferase (ALT/SGPT) 17 U/L (16-63) Alkaline Phosphatase 53 U/L (46-116) Total Protein 7.3 g/dL (6.4-8.2) Albumin 3.3 g/dL (3.4-5.0) Albumin/Globulin Ratio 0.8 (1.0-1.7) Urine Collection Type Void Urine Color Yellow Urine Clarity Clear Urine pH 6.5 Urine Specific Wilson 1.015 Urine Protein Negative mg/dL (NEG-TRACE) Urine Glucose (UA) 250 mg/dL (NEG) Urine Ketones (Stick) Negative mg/dL (NEG) Urine Blood Negative (NEG) Urine Nitrite Negative (NEG) Urine Bilirubin Negative (NEG) Urine Urobilinogen Dipstick 1.0 mg/dL (0.2 mg/dL) Urine Leukocyte Esterase Negative (NEG) Urine RBC 0 /HPF (0-2) Urine WBC 0 /HPF (0-4) Urine Squamous Epithelial Cells Few /LPF Urine Bacteria 0 /HPF (0-FEW) Glucose (Fingerstick) 237 mg/dL (70-99) Troponin I Quantitative < 0.017 ng/mL (0.000-0.055) Test 01/07/19 04:03 01/07/19 07:15 Troponin I Quantitative < 0.017 ng/mL (0.000-0.055) Glucose (Fingerstick) 228 mg/dL (70-99) Images Images Head CT Comparison: None other than MRI brain exam 08/23/2010 Findings: No acute extra-axial or parenchymal hemorrhage is identified. There is no significant intra-axial mass effect, midline shift, or extra-axial fluid collection. The salgado-white differentiation of the major vascular territories is preserved. There is some scattered [id number] ill-defined low-density of the supratentorial parenchyma bilaterally. The ventricles, sulci, and cisterns are within normal limits in size and configuration. The mastoid air cells and the visualized paranasal sinuses are aerated. There is no significant focal calvarial abnormality. Impression: 1. No acute intracranial abnormality is identified. 2. Scattered ill-defined low-density of the supratentorial parenchyma bilaterally is probably due to chronic microvascular ischemic disease in a patient this age. Cervical spine CT Comparison: None Findings: No acute cervical spine fracture is identified. Vertebral body stature is adequate. AP alignment is within normal limits. There is straightening of cervical spine. There is more advanced degenerative disc disease C5-6 and C6-7, minimally at C4-5. There is multilevel spondylosis greatest C5-C6 and C6-7. There is at least mild narrowing of the far left lateral recess at C5-C6 by disc osteophyte complex, also likely borderline to mild central canal stenosis C6-7 with a greater degree of left lateral recess stenosis at C6-7 by disc osteophyte complex and bulge. There is severe narrowing of the left C6-7 neural foramen in part by uncovertebral and facet degenerative change, also severe narrowing on the right at C5-6, lesser degree of narrowing on the left at C5-6 and C3-C4. There is mild levoscoliosis. Atlanto-axial distance is within normal limits. There is appropriate alignment of lateral masses of C1 relative to C2. Occipital condylar-C1 relationship is maintained. Impression: 1. No acute cervical spine fracture is identified. 2. There is degenerative disc disease and spondylosis greatest C5-6 and C7, at least mild left lateral recess stenosis at these levels. Facet and uncovertebral degenerative change contributes to multilevel neural foramina compromise, more significant narrowing on the left at C6-7, on the right at C5-6, to a somewhat lesser degree on the left at C3-4 and C5-6. Assessment/Plan Assessment/Plan Impression: Polyneuropathy, I really don't think he is weak at all, of course I could not examine the right arm. Most likely this is from diabetes, rule out other causes. I find no evidence of central nervous system disease or myelopathy. 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 Intra-articular fracture of the distal radius, also ulnar styloid process fracture History of stroke, resolved symptoms Recommendations: Bloodwork for other causes of neuropathy. Physical and occupational therapy Orthopedic consultation. Thank you for letting me help of the patient's care. MITCHELL MAYFIELD MD Jan 07, 2019 09:50
--- NOTE | 2019-01-07 10:34 | NUR ---
SW following. Discussed with RN, pt is from home with . Await ortho consult as well as PT/OT recommendations. SW will continue to follow.
--- NOTE | 2019-01-07 10:49 | PDOC2 ---
CONSULT Date of Consult Date of Consult DATE: 01/07/19 TIME: 10:44 Reason for Consult Reason for Consult: Right wrist fracture Referring Physician Referring Physician: Koby Identification/Chief Complaint Chief Complaint Right wrist pain Source Source: Chart review, Patient History of Present Illness Reason for Visit: Patient is a pleasant 83-year-old gentleman who lost his balance, normally he emulates with a walker, and landed onto an outstretched right upper extremity as he tried to brace himself. He noted immediate pain and swelling in his wrist. He denies any preceding symptoms other than some dizziness. He denies hitting his head on the way down. He was brought into the emergency department for his ball fall and symptoms. He was discovered to have a right distal radius fracture and was asked to see him for this. Neurology has been consult as well to investigate further into his mental status. He tells me that his wrists feeling a lot better, he was placed into a splint in the emergency department. His fingers feel stiff and sore to move though. His pain is a little bit better as long as he doesn't use his right arm. Past Medical History Cardiovascular: CAD, HTN, Hyperlipidemia Pulmonary: Asthma CENTRAL NERVOUS SYSTEM: CVA GI: GERD Heme/Onc: Anemia NOS Renal/: Prostate Ca., Urinary Incontinence ( also urgency and retention) Endocrine: Diabetes Past Surgical History Past Surgical History: Other (Coronary stent) Current Problem List Problem List Problems Medical Problems: (1) Fall Status: Acute (2) Right wrist fracture Status: Acute (3) Weakness generalized Status: Acute Current Medications Current Medications Current Medications Sodium Chloride 1,000 ml @ 1,000 mls/hr 1X ONCE IV Last administered on at 19:32; Start 01/06/19 at 18:30; Stop 01/06/19 at 19:29; Status DC Fentanyl Citrate (Fentanyl 2ml Vial) 50 mcg 1X ONCE IV Last administered on 01/06/19at 19:30; Start 01/06/19 at 18:30; Stop 01/06/19 at 18:34; Status DC Insulin Human Lispro (HumaLOG) 0-5 UNITS TIDWMEALS SQ Last administered on at 09:25; Start 01/07/19 at 08:00 Dextrose (Dextrose 50%-Water Syringe) 12.5 gm PRN Q15MIN PRN IV SEE COMMENTS; Start 01/06/19 at 22:30 Fentanyl Citrate (Fentanyl 2ml Vial) 50 mcg PRN Q3HRS PRN IV MODERATE PAIN Last administered on 01/07/19at 07:50; Start 01/06/19 at 22:45; Stop 01/07/19 at 07: 50; Status DC Magnesium Sulfate 50 ml @ 25 mls/hr 1X ONCE IV Last administered on 01/07/19at 09:38; Start 01/07/19 at 08:30; Stop 01/07/19 at 10:29; Status DC Ondansetron HCl (Zofran) 4 mg PRN Q6HRS PRN IV NAUSEA/VOMITING; Start 01/07/19 at 08:00 Acetaminophen/ Hydrocodone Bitart (Lortab 5/325) 1 tab PRN Q4HRS PRN PO MODERATE-SEVERE PAIN; Start 01/07/19 at 08:00 Acetaminophen (Tylenol) 650 mg PRN Q6HRS PRN PO Headaches, Temp > 101.5F; Start 01/07/19 at 08:00 Senna/Docusate Sodium (Senna Plus) 1 tab BID PO Last administered on 01/07/19 09:34; Start 01/07/19 at 09:00 Magnesium Hydroxide (Milk Of Magnesia) 2,400 mg PRN Q12HR PRN PO CONSTIPATION; Start 01/07/19 at 08:00 Heparin Sodium (Porcine) (Heparin Sodium) 5,000 unit Q8HRS SQ ; Start 01/07/19 at 14:00 Aspirin (Ecotrin) 81 mg DAILY PO Last administered on 01/07/19at 09:33; Start 01/07/19 at 09:00 Atorvastatin Calcium (Lipitor) 40 mg QHS PO ; Start 01/07/19 at 21:00 Carvedilol (Coreg) 6.25 mg BIDWMEALS PO Last administered on 01/07/19 09:33; Start 01/07/19 at 09:00 Clopidogrel Bisulfate (Plavix) 75 mg DAILY PO Last administered on 01/07/19 09: 34; Start 01/07/19 at 09:00 Cyanocobalamin (Vitamin B-12) 1,000 mcg DAILY PO Last administered on 01/07/19 09:34; Start 01/07/19 at 09:00 Famotidine (Pepcid) 20 mg HS PO ; Start 01/07/19 at 21:00 Ferrous Sulfate (Feosol) 325 mg DAILYWBKFT PO Last administered on 01/07/19 09: 34; Start 01/07/19 at 09:00 Glipizide (Glucotrol) 2.5 mg DAILYWBKFT PO Last administered on 01/07/19 09:35 ; Start 01/07/19 at 09:00 Lisinopril (Prinivil) 10 mg DAILY PO Last administered on 01/07/19at 09:34; Start 01/07/19 at 09:00 Non-Formulary Medication (Abiraterone Acetate (Zytiga)) 1,000 mg DAILY PO ; Start 01/07/19 at 09:00; Status UNV Multivitamins (Thera M Plus) 1 tab DAILY PO Last administered on 01/07/19 09:34 ; Start 01/07/19 at 09:00 Tamsulosin HCl (Flomax) 0.4 mg DAILY PO Last administered on 01/07/19at 09:33; Start 01/07/19 at 09:00 Active Scripts Active Reported Glipizide 5 Mg Tablet 0.5 Tab PO DAILYWBKFT Zytiga (Abiraterone Acetate) 250 Mg Tablet 1,000 Mg PO DAILY Vitamin B-12 (Cyanocobalamin (Vitamin B-12)) 1,000 Mcg Tablet 1 Tab PO DAILY Rapaflo (Silodosin) 8 Mg Capsule 4 Mg PO DAILY Prednisone 2.5 Mg Tablet 2 Tab PO BID Multivitamins (Multivitamin) 1 Each Tablet 1 Tab PO DAILY Lisinopril 10 Mg Tablet 1 Tab PO DAILY Ferrous Sulfate 325 Mg Tablet 325 Mg PO DAILYWBKFT Famotidine 20 Mg Tablet 20 Mg PO HS Metformin Hcl 1,000 Mg Tablet 1,000 Mg PO BIDWMEALS Clopidogrel (Clopidogrel Bisulfate) 75 Mg Tablet 75 Mg PO DAILY Coreg (Carvedilol) 6.25 Mg Tablet 6.25 Mg PO BID Atorvastatin Calcium 40 Mg Tablet 40 Mg PO DAILY Aspirin Ec (Aspirin) 81 Mg Tablet.dr 81 Mg PO DAILY Allergies Allergies: Coded Allergies: No Known Drug Allergies (Unverified , 06/13/14) ROS General: No: Chills, Night Sweats, Fatigue, Malaise, Appetite, Other PSYCHOLOGICAL ROS: YES: Concentration difficultie, Memory difficulties; No: Anxiety, Behavioral Disorder, Decreased libido, Depression, Disorientation, Hallucinations, Hostility, Irritablity, Mood Swings, Obsessive thoughts, Physical abuse, Sexual abuse, Sleep disturbances, Suicidal ideation, Other Eyes: No Blurry vision, No Decreased vision, No Double vision, No Dry eyes, No Excessive tearing, No Eye Pain, No Itchy Eyes, No Loss of vision, No Photophobia , No Scotomata, No Uses contacts, No Uses glasses, No Other HEENT: No: Heacaches, Visual Changes, Hearing change, Nasal congestion, Nasal discharge, Oral lesions, Sinus pain, Sore Throat, Epistaxis, Sneezing, Snoring, Tinnitus, Vertigo, Vocal changes, Other ALLERGY AND IMMUNOLOGY: No: Hives, Insect Bite Sensitivity, Itchy/Watery Eyes, Nasal Congestion, Post Nasal Drip, Seasonal Allergies, Other Hematological and Lymphatic: No: Bleeding Problems, Blood Clots, Blood Transfusions, Brusing, Night Sweats, Pallor, Swollen Lymph Nodes, Other ENDOCRINE: No: Breast Changes, Galactorrhea, Hair Pattern Changes, Hot Flashes , Malaise/lethargy, Mood Swings, Palpitations, Polydipsia/polyuria, Skin Changes , Temperature Intolerance, Unexpected Weight Changes, Other Respiratory: No: Cough, Hemoptysis, Orthopnea, Pleuritic Pain, Shortness of breath, SOB with excertion, Sputum Changes, Stridor, Tachypnea, Wheezing, Other Cardiovascular: No Chest Pain, No Palpitations, No Orthopnea, No Paroxysmal Noc. Dyspnea, No Edema, No Lt Headedness, No Other Gastrointestinal: No Nausea, No Vomiting, No Abdominal Pain, No Diarrhea, No Constipation, No Melena, No Hematochezia, No Other Genitourinary: No Dysuria, No Frequency, No Incontinence, No Hematuria, No Retention, No Discharge, No Urgency, No Pain, No Flank Pain, No Other, No , No , No , No , No , No , No Musculoskeletal: Yes Joint Pain, Yes Joint Stiffness Neurological: Yes Dizziness, Yes Gait Disturbance; No Behavorial Changes, No Bowel/Bladder ControlChng, No Confusion, No Headaches, No Impaired Coord/balance, No Memory Loss, No Numbness/Tingling, No Seizures, No Speech Problems, No Tremors, No Visual Changes, No Weakness, No Other Skin: No Dry Skin, No Eczema, No Hair Changes, No Lumps, No Mole Changes, No Mottling, No Nail Changes, No Pruritus, No Rash, No Skin Lesion Changes, No Other, No Acne Physical Exam General: Alert, No acute distress, Other (his speech is slow) HEENT: Atraumatic, EOMI Lungs: Other (respirations are unlabored with symmetric chest rise) Heart: Regular rate Abdomen: Soft, No tenderness Extremities: No edema, Normal pulses Skin: No rashes Neuro: Normal speech, Strength at 5/5 X4 ext, Sensation intact Psych/Mental Status: Mood NL MUSCULOSKELETAL: Other (examination of his left upper extremity reveals he is a sling in place. Sugar tong splint in place. He has some edema at his exposed fingers, he is able to wiggle all his fingers well.) Vitals VITALS Vital Signs Date Time Temp Pulse Resp B/P (MAP) Pulse Ox O2 Delivery O2 Flow Rate FiO2 01/07/19 09:34 74 155/69 01/07/19 07:50 16 Room Air 01/07/19 07:00 97.9 96 97.9 Labs Labs Laboratory Tests Test 01/06/19 18:45 01/06/19 20:00 01/06/19 23:45 01/07/19 01:18 White Blood Count 8.2 x10^3/uL (4.0-11.0) Red Blood Count 4.37 x10^6/uL (4.30-5.70) Hemoglobin 13.9 g/dL (13.0-17.5) Hematocrit 41.4 % (39.0-53.0) Mean Corpuscular Volume 95 fL (79-100) Mean Corpuscular Hemoglobin 32 pg (25-35) Mean Corpuscular Hemoglobin Concent 34 g/dL (31-37) Red Cell Distribution Width 14.3 % (11.5-14.5) Platelet Count 227 x10^3/uL (140-400) Neutrophils (%) (Auto) 76 % (31-73) Lymphocytes (%) (Auto) 12 % (24-48) Monocytes (%) (Auto) 9 % (0-9) Eosinophils (%) (Auto) 2 % (0-3) Basophils (%) (Auto) 0 % (0-3) Neutrophils # (Auto) 6.2 x10^3uL (1.8-7.7) Lymphocytes # (Auto) 1.0 x10^3/uL (1.0-4.8) Monocytes # (Auto) 0.8 x10^3/uL (0.0-1.1) Eosinophils # (Auto) 0.1 x10^3/uL (0.0-0.7) Basophils # (Auto) 0.0 x10^3/uL (0.0-0.2) Prothrombin Time 12.9 SEC (11.7-14.0) Prothromb Time International Ratio 1.0 (0.8-1.1) Activated Partial Thromboplast Time 29 SEC (24-38) Sodium Level 139 mmol/L (136-145) Potassium Level 4.0 mmol/L (3.5-5.1) Chloride Level 101 mmol/L (98-107) Carbon Dioxide Level 28 mmol/L (21-32) Anion Gap 10 (6-14) Blood Urea Nitrogen 14 mg/dL (8-26) Creatinine 0.9 mg/dL (0.7-1.3) Estimated GFR (Cockcroft-Gault) 98.0 BUN/Creatinine Ratio 16 (6-20) Glucose Level 226 mg/dL (70-99) Calcium Level 9.3 mg/dL (8.5-10.1) Magnesium Level 1.7 mg/dL (1.8-2.4) Total Bilirubin 1.0 mg/dL (0.2-1.0) Aspartate Amino Transf (AST/SGOT) 15 U/L (15-37) Alanine Aminotransferase (ALT/SGPT) 17 U/L (16-63) Alkaline Phosphatase 53 U/L (46-116) Total Protein 7.3 g/dL (6.4-8.2) Albumin 3.3 g/dL (3.4-5.0) Albumin/Globulin Ratio 0.8 (1.0-1.7) Urine Collection Type Void Urine Color Yellow Urine Clarity Clear Urine pH 6.5 Urine Specific [place] 1.015 Urine Protein Negative mg/dL (NEG-TRACE) Urine Glucose (UA) 250 mg/dL (NEG) Urine Ketones (Stick) Negative mg/dL (NEG) Urine Blood Negative (NEG) Urine Nitrite Negative (NEG) Urine Bilirubin Negative (NEG) Urine Urobilinogen Dipstick 1.0 mg/dL (0.2 mg/dL) Urine Leukocyte Esterase Negative (NEG) Urine RBC 0 /HPF (0-2) Urine WBC 0 /HPF (0-4) Urine Squamous Epithelial Cells Few /LPF Urine Bacteria 0 /HPF (0-FEW) Glucose (Fingerstick) 237 mg/dL (70-99) Troponin I Quantitative < 0.017 ng/mL (0.000-0.055) Test 01/07/19 04:03 01/07/19 07:15 Troponin I Quantitative < 0.017 ng/mL (0.000-0.055) Glucose (Fingerstick) 228 mg/dL (70-99) Laboratory Tests Test 01/06/19 18:45 01/06/19 20:00 01/06/19 23:45 01/07/19 01:18 White Blood Count 8.2 x10^3/uL (4.0-11.0) Red Blood Count 4.37 x10^6/uL (4.30-5.70) Hemoglobin 13.9 g/dL (13.0-17.5) Hematocrit 41.4 % (39.0-53.0) Mean Corpuscular Volume 95 fL (79-100) Mean Corpuscular Hemoglobin 32 pg (25-35) Mean Corpuscular Hemoglobin Concent 34 g/dL (31-37) Red Cell Distribution Width 14.3 % (11.5-14.5) Platelet Count 227 x10^3/uL (140-400) Neutrophils (%) (Auto) 76 % (31-73) Lymphocytes (%) (Auto) 12 % (24-48) Monocytes (%) (Auto) 9 % (0-9) Eosinophils (%) (Auto) 2 % (0-3) Basophils (%) (Auto) 0 % (0-3) Neutrophils # (Auto) 6.2 x10^3uL (1.8-7.7) Lymphocytes # (Auto) 1.0 x10^3/uL (1.0-4.8) Monocytes # (Auto) 0.8 x10^3/uL (0.0-1.1) Eosinophils # (Auto) 0.1 x10^3/uL (0.0-0.7) Basophils # (Auto) 0.0 x10^3/uL (0.0-0.2) Prothrombin Time 12.9 SEC (11.7-14.0) Prothromb Time International Ratio 1.0 (0.8-1.1) Activated Partial Thromboplast Time 29 SEC (24-38) Sodium Level 139 mmol/L (136-145) Potassium Level 4.0 mmol/L (3.5-5.1) Chloride Level 101 mmol/L (98-107) Carbon Dioxide Level 28 mmol/L (21-32) Anion Gap 10 (6-14) Blood Urea Nitrogen 14 mg/dL (8-26) Creatinine 0.9 mg/dL (0.7-1.3) Estimated GFR (Cockcroft-Gault) 98.0 BUN/Creatinine Ratio 16 (6-20) Glucose Level 226 mg/dL (70-99) Calcium Level 9.3 mg/dL (8.5-10.1) Magnesium Level 1.7 mg/dL (1.8-2.4) Total Bilirubin 1.0 mg/dL (0.2-1.0) Aspartate Amino Transf (AST/SGOT) 15 U/L (15-37) Alanine Aminotransferase (ALT/SGPT) 17 U/L (16-63) Alkaline Phosphatase 53 U/L (46-116) Total Protein 7.3 g/dL (6.4-8.2) Albumin 3.3 g/dL (3.4-5.0) Albumin/Globulin Ratio 0.8 (1.0-1.7) Urine Collection Type Void Urine Color Yellow Urine Clarity Clear Urine pH 6.5 Urine Specific [place] 1.015 Urine Protein Negative mg/dL (NEG-TRACE) Urine Glucose (UA) 250 mg/dL (NEG) Urine Ketones (Stick) Negative mg/dL (NEG) Urine Blood Negative (NEG) Urine Nitrite Negative (NEG) Urine Bilirubin Negative (NEG) Urine Urobilinogen Dipstick 1.0 mg/dL (0.2 mg/dL) Urine Leukocyte Esterase Negative (NEG) Urine RBC 0 /HPF (0-2) Urine WBC 0 /HPF (0-4) Urine Squamous Epithelial Cells Few /LPF Urine Bacteria 0 /HPF (0-FEW) Glucose (Fingerstick) 237 mg/dL (70-99) Troponin I Quantitative < 0.017 ng/mL (0.000-0.055) Test 01/07/19 04:03 01/07/19 07:15 Troponin I Quantitative < 0.017 ng/mL (0.000-0.055) Glucose (Fingerstick) 228 mg/dL (70-99) Images Images X-rays were interpreted by myself. Report was reviewed. He has a comminuted right distal radius fracture in acceptable overall alignment Assessment/Plan Assessment/Plan Right distal radius fracture, in splint, good overall alignment. From my standpoint he just needs to rest and protect this from further injury. I discussed with him that he should move his arm around to help minimize shoulder stiffness. He can use a platform walker. From my standpoint, he can be discharged when she is workup is complete and other issues are resolved. He should follow up with me in 2 weeks or so for repeat x-rays. He should be nonweightbearing right upper extremity. ZAHRA VÁSQUEZ II, MD Jan 07, 2019 10:49
[2019-01-07 11:00] VITALS: BP 133/72
[2019-01-07] MEDS ORDERED: HYDROcodone/APAP 7.5/325MG 1 TAB TABLET PO PRN (11:00)
[2019-01-07] MEDS: HEPARIN for SUB-Q USE 5,000 UNIT/ML VIAL. SQ SCH ×2 (14:05→22:19)
[2019-01-07 15:00] VITALS: BP 140/68
[2019-01-07] MEDS: HYDROcodone/APAP 7.5/325MG 1 TAB TABLET PO PRN (16:52)
[2019-01-07 19:00] VITALS: BP 136/65
[2019-01-07] MEDS: FAMOTIDINE 20 MG TABLET. PO SCH (21:40)
[2019-01-07] MEDS: ATORVASTATIN CALCIUM 40 MG TABLET. PO SCH (21:40)
[2019-01-07 22:54] VITALS: BP 140/71
[2019-01-08 03:00] VITALS: BP 149/69
[2019-01-08 04:34] LABS: BASO % 0 % (0-3); EOS # 0.2 x10^3/uL (0.0-0.7); EOS % 5 % (0-3); HEMATOCRIT 39.3 % (39.0-53.0); HEMOGLOBIN 12.8 g/dL (13.0-17.5); LYMPH % 18 % (24-48); MEAN CORPUSCULAR HEMOGLOBIN 31 pg (25-35); MEAN CORPUSCULAR HGB CONC 33 g/dL (31-37); MEAN CORPUSCULAR VOLUME 95 fL (79-100); MONO # 0.6 x10^3/uL (0.0-1.1); MONO % 11 % (0-9); NEUT # 3.7 x10^3uL (1.8-7.7); NEUT % 67 % (31-73); PLATELET COUNT 211 x10^3/uL (140-400); RED BLOOD COUNT 4.13 x10^6/uL (4.30-5.70); RED CELL DISTRIBUTION WIDTH 14.1 % (11.5-14.5); WHITE BLOOD COUNT 5.5 x10^3/uL (4.0-11.0)
[2019-01-08] MEDS: HYDROcodone/APAP 7.5/325MG 1 TAB TABLET PO PRN ×3 (05:27→22:20)
[2019-01-08 05:34] LABS: CALCIUM 8.3 mg/dL (8.5-10.1); CREATININE 0.7 mg/dL (0.7-1.3); MAGNESIUM 2.2 mg/dL (1.8-2.4); POTASSIUM 3.8 mmol/L (3.5-5.1)
[2019-01-08] MEDS: HEPARIN for SUB-Q USE 5,000 UNIT/ML VIAL. SQ SCH ×3 (05:47→22:00)
[2019-01-08 07:00] VITALS: BP 142/69
--- NOTE | 2019-01-08 07:42 | PDOC ---
PROGRESS NOTES Chief Complaint Chief Complaint A/P: Right wrist fracture - non-operative at this point, will increase hydrocodone to 7.5mg. Ortho consulted. Cont sling. OT to see. PT as well Fall - with prior CVA, will have neurology to see, PT as well Prostate cancer - on maintenance therapy DM2 - sliding scale in house HTN - cont meds CAD - cont meds, stable, history of stenting FEN - ADA cardiac PPX - Heparin FULL CODE Inpatient for right wrist fracture, falls with multiple co-morbids. Will need full skilled rehab services on d/c History of Present Illness History of Present Illness 83 yo w/ PMHx prostate cancer, DM2, HTN, CAD, prior CVA who presents with wrist pain after a fall. Patient stated he was getting up to go to the bathroom at home and lost his balance while reaching for his walker. He fell towards the wall, held his hand out to catch himself, and fell down onto the floor on his outstretched right hand. The pain is located on the left ulnar headache and slightly medial. He rated the pain as a 10/10 throbbing pain that does not radiate. Patient does not remember hitting his head or losing consciousness. He did have a stroke affecting the left side of his body several years ago, treated at , with resolution of symptoms. There is no history of seizure or head injury. He states the pain is not as well controlled with 5mg hydrocodone as he would like, still 6/10 now. Ambulating with platform walker, however, he almost falls with dual assist. PT recommends SNF Plan: Gait training for apraxia The patient is an 83-year-old right-handed male who has been using a walker for the last several months because he feels off balance. He does not have vertigo or lightheadedness. He is fine as long as he is sitting or lying down, only when he stands up. He does have a long history of diabetes. He does have some numbness in his feet. He denies the neck or back pain. He did have a stroke affecting the left side of his body several years ago, treated at , with resolution of symptoms. There is no history of seizure or head injury. Vitals Vitals Vital Signs Date Time Temp Pulse Resp B/P (MAP) Pulse Ox O2 Delivery O2 Flow Rate FiO2 01/08/19 06:27 16 Room Air 01/08/19 03:00 98.5 72 149/69 (95) 96 98.5 Physical Exam General: Alert, Oriented X3, Cooperative, No acute distress Heart: Regular rate Abdomen: Normal bowel sounds, Soft, No tenderness, No hepatosplenomegaly, No masses Extremities: No clubbing, No cyanosis, No edema, Normal pulses, Other (Right arm in sling, hand swollen, pulses intact) Skin: No rashes, No breakdown, No significant lesion Labs LABS Laboratory Tests Test 01/07/19 11:17 01/07/19 16:26 01/08/19 03:55 01/08/19 05:25 Glucose (Fingerstick) 238 mg/dL (70-99) 225 mg/dL (70-99) 188 mg/dL (70-99) White Blood Count 5.5 x10^3/uL (4.0-11.0) Red Blood Count 4.13 x10^6/uL (4.30-5.70) Hemoglobin 12.8 g/dL (13.0-17.5) Hematocrit 39.3 % (39.0-53.0) Mean Corpuscular Volume 95 fL (79-100) Mean Corpuscular Hemoglobin 31 pg (25-35) Mean Corpuscular Hemoglobin Concent 33 g/dL (31-37) Red Cell Distribution Width 14.1 % (11.5-14.5) Platelet Count 211 x10^3/uL (140-400) Neutrophils (%) (Auto) 67 % (31-73) Lymphocytes (%) (Auto) 18 % (24-48) Monocytes (%) (Auto) 11 % (0-9) Eosinophils (%) (Auto) 5 % (0-3) Basophils (%) (Auto) 0 % (0-3) Neutrophils # (Auto) 3.7 x10^3uL (1.8-7.7) Lymphocytes # (Auto) 1.0 x10^3/uL (1.0-4.8) Monocytes # (Auto) 0.6 x10^3/uL (0.0-1.1) Eosinophils # (Auto) 0.2 x10^3/uL (0.0-0.7) Basophils # (Auto) 0.0 x10^3/uL (0.0-0.2) Erythrocyte Sedimentation Rate 30 (0-15) Sodium Level 140 mmol/L (136-145) Potassium Level 3.8 mmol/L (3.5-5.1) Chloride Level 103 mmol/L (98-107) Carbon Dioxide Level 30 mmol/L (21-32) Anion Gap 7 (6-14) Blood Urea Nitrogen 8 mg/dL (8-26) Creatinine 0.7 mg/dL (0.7-1.3) Estimated GFR (Cockcroft-Gault) 131.0 Glucose Level 190 mg/dL (70-99) Calcium Level 8.3 mg/dL (8.5-10.1) Magnesium Level 2.2 mg/dL (1.8-2.4) Thyroid Stimulating Hormone (TSH) 2.147 uIU/mL (0.358-3.74) Assessment and Plan Assessmemt and Plan Problems Medical Problems: (1) Fall Status: Acute (2) Right wrist fracture Status: Acute (3) Weakness generalized Status: Acute Comment Review of Relevant I have reviewed the following items alysia (where applicable) has been applied. Labs Laboratory Tests Test 01/06/19 18:45 01/06/19 20:00 01/06/19 23:45 01/07/19 01:18 White Blood Count 8.2 x10^3/uL (4.0-11.0) Red Blood Count 4.37 x10^6/uL (4.30-5.70) Hemoglobin 13.9 g/dL (13.0-17.5) Hematocrit 41.4 % (39.0-53.0) Mean Corpuscular Volume 95 fL (79-100) Mean Corpuscular Hemoglobin 32 pg (25-35) Mean Corpuscular Hemoglobin Concent 34 g/dL (31-37) Red Cell Distribution Width 14.3 % (11.5-14.5) Platelet Count 227 x10^3/uL (140-400) Neutrophils (%) (Auto) 76 % (31-73) Lymphocytes (%) (Auto) 12 % (24-48) Monocytes (%) (Auto) 9 % (0-9) Eosinophils (%) (Auto) 2 % (0-3) Basophils (%) (Auto) 0 % (0-3) Neutrophils # (Auto) 6.2 x10^3uL (1.8-7.7) Lymphocytes # (Auto) 1.0 x10^3/uL (1.0-4.8) Monocytes # (Auto) 0.8 x10^3/uL (0.0-1.1) Eosinophils # (Auto) 0.1 x10^3/uL (0.0-0.7) Basophils # (Auto) 0.0 x10^3/uL (0.0-0.2) Prothrombin Time 12.9 SEC (11.7-14.0) Prothromb Time International Ratio 1.0 (0.8-1.1) Activated Partial Thromboplast Time 29 SEC (24-38) Sodium Level 139 mmol/L (136-145) Potassium Level 4.0 mmol/L (3.5-5.1) Chloride Level 101 mmol/L (98-107) Carbon Dioxide Level 28 mmol/L (21-32) Anion Gap 10 (6-14) Blood Urea Nitrogen 14 mg/dL (8-26) Creatinine 0.9 mg/dL (0.7-1.3) Estimated GFR (Cockcroft-Gault) 98.0 BUN/Creatinine Ratio 16 (6-20) Glucose Level 226 mg/dL (70-99) Calcium Level 9.3 mg/dL (8.5-10.1) Magnesium Level 1.7 mg/dL (1.8-2.4) Total Bilirubin 1.0 mg/dL (0.2-1.0) Aspartate Amino Transf (AST/SGOT) 15 U/L (15-37) Alanine Aminotransferase (ALT/SGPT) 17 U/L (16-63) Alkaline Phosphatase 53 U/L (46-116) Total Protein 7.3 g/dL (6.4-8.2) Albumin 3.3 g/dL (3.4-5.0) Albumin/Globulin Ratio 0.8 (1.0-1.7) Urine Collection Type Void Urine Color Yellow Urine Clarity Clear Urine pH 6.5 Urine Specific Hawkins 1.015 Urine Protein Negative mg/dL (NEG-TRACE) Urine Glucose (UA) 250 mg/dL (NEG) Urine Ketones (Stick) Negative mg/dL (NEG) Urine Blood Negative (NEG) Urine Nitrite Negative (NEG) Urine Bilirubin Negative (NEG) Urine Urobilinogen Dipstick 1.0 mg/dL (0.2 mg/dL) Urine Leukocyte Esterase Negative (NEG) Urine RBC 0 /HPF (0-2) Urine WBC 0 /HPF (0-4) Urine Squamous Epithelial Cells Few /LPF Urine Bacteria 0 /HPF (0-FEW) Glucose (Fingerstick) 237 mg/dL (70-99) Troponin I Quantitative < 0.017 ng/mL (0.000-0.055) Test 01/07/19 04:03 01/07/19 07:15 01/07/19 11:17 01/07/19 16:26 Troponin I Quantitative < 0.017 ng/mL (0.000-0.055) Glucose (Fingerstick) 228 mg/dL (70-99) 238 mg/dL (70-99) 225 mg/dL (70-99) Test 01/08/19 03:55 01/08/19 05:25 White Blood Count 5.5 x10^3/uL (4.0-11.0) Red Blood Count 4.13 x10^6/uL (4.30-5.70) Hemoglobin 12.8 g/dL (13.0-17.5) Hematocrit 39.3 % (39.0-53.0) Mean Corpuscular Volume 95 fL (79-100) Mean Corpuscular Hemoglobin 31 pg (25-35) Mean Corpuscular Hemoglobin Concent 33 g/dL (31-37) Red Cell Distribution Width 14.1 % (11.5-14.5) Platelet Count 211 x10^3/uL (140-400) Neutrophils (%) (Auto) 67 % (31-73) Lymphocytes (%) (Auto) 18 % (24-48) Monocytes (%) (Auto) 11 % (0-9) Eosinophils (%) (Auto) 5 % (0-3) Basophils (%) (Auto) 0 % (0-3) Neutrophils # (Auto) 3.7 x10^3uL (1.8-7.7) Lymphocytes # (Auto) 1.0 x10^3/uL (1.0-4.8) Monocytes # (Auto) 0.6 x10^3/uL (0.0-1.1) Eosinophils # (Auto) 0.2 x10^3/uL (0.0-0.7) Basophils # (Auto) 0.0 x10^3/uL (0.0-0.2) Erythrocyte Sedimentation Rate 30 (0-15) Sodium Level 140 mmol/L (136-145) Potassium Level 3.8 mmol/L (3.5-5.1) Chloride Level 103 mmol/L (98-107) Carbon Dioxide Level 30 mmol/L (21-32) Anion Gap 7 (6-14) Blood Urea Nitrogen 8 mg/dL (8-26) Creatinine 0.7 mg/dL (0.7-1.3) Estimated GFR (Cockcroft-Gault) 131.0 Glucose Level 190 mg/dL (70-99) Calcium Level 8.3 mg/dL (8.5-10.1) Magnesium Level 2.2 mg/dL (1.8-2.4) Thyroid Stimulating Hormone (TSH) 2.147 uIU/mL (0.358-3.74) Glucose (Fingerstick) 188 mg/dL (70-99) Laboratory Tests Test 01/07/19 11:17 01/07/19 16:26 01/08/19 03:55 01/08/19 05:25 Glucose (Fingerstick) 238 mg/dL (70-99) 225 mg/dL (70-99) 188 mg/dL (70-99) White Blood Count 5.5 x10^3/uL (4.0-11.0) Red Blood Count 4.13 x10^6/uL (4.30-5.70) Hemoglobin 12.8 g/dL (13.0-17.5) Hematocrit 39.3 % (39.0-53.0) Mean Corpuscular Volume 95 fL (79-100) Mean Corpuscular Hemoglobin 31 pg (25-35) Mean Corpuscular Hemoglobin Concent 33 g/dL (31-37) Red Cell Distribution Width 14.1 % (11.5-14.5) Platelet Count 211 x10^3/uL (140-400) Neutrophils (%) (Auto) 67 % (31-73) Lymphocytes (%) (Auto) 18 % (24-48) Monocytes (%) (Auto) 11 % (0-9) Eosinophils (%) (Auto) 5 % (0-3) Basophils (%) (Auto) 0 % (0-3) Neutrophils # (Auto) 3.7 x10^3uL (1.8-7.7) Lymphocytes # (Auto) 1.0 x10^3/uL (1.0-4.8) Monocytes # (Auto) 0.6 x10^3/uL (0.0-1.1) Eosinophils # (Auto) 0.2 x10^3/uL (0.0-0.7) Basophils # (Auto) 0.0 x10^3/uL (0.0-0.2) Erythrocyte Sedimentation Rate 30 (0-15) Sodium Level 140 mmol/L (136-145) Potassium Level 3.8 mmol/L (3.5-5.1) Chloride Level 103 mmol/L (98-107) Carbon Dioxide Level 30 mmol/L (21-32) Anion Gap 7 (6-14) Blood Urea Nitrogen 8 mg/dL (8-26) Creatinine 0.7 mg/dL (0.7-1.3) Estimated GFR (Cockcroft-Gault) 131.0 Glucose Level 190 mg/dL (70-99) Calcium Level 8.3 mg/dL (8.5-10.1) Magnesium Level 2.2 mg/dL (1.8-2.4) Thyroid Stimulating Hormone (TSH) 2.147 uIU/mL (0.358-3.74) Medications Current Medications Sodium Chloride 1,000 ml @ 1,000 mls/hr 1X ONCE IV Last administered on at 19:32; Start 01/06/19 at 18:30; Stop 01/06/19 at 19:29; Status DC Fentanyl Citrate (Fentanyl 2ml Vial) 50 mcg 1X ONCE IV Last administered on 01/06/19at 19:30; Start 01/06/19 at 18:30; Stop 01/06/19 at 18:34; Status DC Insulin Human Lispro (HumaLOG) 0-5 UNITS TIDWMEALS SQ Last administered on at 16:56; Start 01/07/19 at 08:00 Dextrose (Dextrose 50%-Water Syringe) 12.5 gm PRN Q15MIN PRN IV SEE COMMENTS; Start 01/06/19 at 22:30 Fentanyl Citrate (Fentanyl 2ml Vial) 50 mcg PRN Q3HRS PRN IV MODERATE PAIN Last administered on 01/07/19 07:50; Start 01/06/19 at 22:45; Stop 01/07/19 at 07: 50; Status DC Magnesium Sulfate 50 ml @ 25 mls/hr 1X ONCE IV Last administered on 01/07/19 09:38; Start 01/07/19 at 08:30; Stop 01/07/19 at 10:29; Status DC Ondansetron HCl (Zofran) 4 mg PRN Q6HRS PRN IV NAUSEA/VOMITING; Start 01/07/19 at 08:00 Acetaminophen/ Hydrocodone Bitart (Lortab 5/325) 1 tab PRN Q4HRS PRN PO MODERATE-SEVERE PAIN; Start 01/07/19 at 08:00; Stop 01/07/19 at 10:54; Status DC Acetaminophen (Tylenol) 650 mg PRN Q6HRS PRN PO Headaches, Temp > 101.5F; Start 01/07/19 at 08:00 Senna/Docusate Sodium (Senna Plus) 1 tab BID PO Last administered on 01/07/19 21:40; Start 01/07/19 at 09:00 Magnesium Hydroxide (Milk Of Magnesia) 2,400 mg PRN Q12HR PRN PO CONSTIPATION; Start 01/07/19 at 08:00 Heparin Sodium (Porcine) (Heparin Sodium) 5,000 unit Q8HRS SQ Last administered on 01/08/19 05:47; Start 01/07/19 at 14:00 Aspirin (Ecotrin) 81 mg DAILY PO Last administered on 01/07/19 09:33; Start 01/07/19 at 09:00 Atorvastatin Calcium (Lipitor) 40 mg QHS PO Last administered on 01/07/19 21:40 ; Start 01/07/19 at 21:00 Carvedilol (Coreg) 6.25 mg BIDWMEALS PO Last administered on 01/07/19 16:54; Start 01/07/19 at 09:00 Clopidogrel Bisulfate (Plavix) 75 mg DAILY PO Last administered on 01/07/19 09: 34; Start 01/07/19 at 09:00 Cyanocobalamin (Vitamin B-12) 1,000 mcg DAILY PO Last administered on 01/07/19 09:34; Start 01/07/19 at 09:00 Famotidine (Pepcid) 20 mg HS PO Last administered on 01/07/19 21:40; Start 01/07 at 21:00 Ferrous Sulfate (Feosol) 325 mg DAILYWBKFT PO Last administered on 01/07/19 09: 34; Start 01/07/19 at 09:00 Glipizide (Glucotrol) 2.5 mg DAILYWBKFT PO Last administered on 01/07/19 09:35 ; Start 01/07/19 at 09:00 Lisinopril (Prinivil) 10 mg DAILY PO Last administered on 01/07/19 09:34; Start 01/07/19 at 09:00 Non-Formulary Medication (Abiraterone Acetate (Zytiga)) 1,000 mg DAILY PO ; Start 01/07/19 at 09:00; Status UNV Multivitamins (Thera M Plus) 1 tab DAILY PO Last administered on 01/07/19 09:34 ; Start 01/07/19 at 09:00 Tamsulosin HCl (Flomax) 0.4 mg DAILY PO Last administered on 01/07/19 09:33; Start 01/07/19 at 09:00 Acetaminophen/ Hydrocodone Bitart (Lortab 7.5/325) 1 tab PRN Q6HRS PRN PO PAIN Last administered on 01/07/19 11:29; Start 01/07/19 at 11:00; Stop 01/07/19 at 16: 47; Status DC Acetaminophen/ Hydrocodone Bitart (Lortab 7.5/325) 1 tab PRN Q4HRS PRN PO PAIN Last administered on 01/08/19 05:27; Start 01/07/19 at 17:00 Active Scripts Active Reported Glipizide 5 Mg Tablet 0.5 Tab PO DAILYWBKFT Zytiga (Abiraterone Acetate) 250 Mg Tablet 1,000 Mg PO DAILY Vitamin B-12 (Cyanocobalamin (Vitamin B-12)) 1,000 Mcg Tablet 1 Tab PO DAILY Rapaflo (Silodosin) 8 Mg Capsule 4 Mg PO DAILY Prednisone 2.5 Mg Tablet 2 Tab PO BID Multivitamins (Multivitamin) 1 Each Tablet 1 Tab PO DAILY Lisinopril 10 Mg Tablet 1 Tab PO DAILY Ferrous Sulfate 325 Mg Tablet 325 Mg PO DAILYWBKFT Famotidine 20 Mg Tablet 20 Mg PO HS Metformin Hcl 1,000 Mg Tablet 1,000 Mg PO BIDWMEALS Clopidogrel (Clopidogrel Bisulfate) 75 Mg Tablet 75 Mg PO DAILY Coreg (Carvedilol) 6.25 Mg Tablet 6.25 Mg PO BID Atorvastatin Calcium 40 Mg Tablet 40 Mg PO DAILY Aspirin Ec (Aspirin) 81 Mg Tablet.dr 81 Mg PO DAILY Vitals/I & O Vital Sign - Last 24 Hours 01/07/19 01/07/19 01/07/19 01/07/19 07:50 09:33 09:34 11:00 Temp 98.0 98.0 Pulse 74 74 74 Resp 16 18 B/P (MAP) 155/69 155/69 133/72 (92) Pulse Ox 98 O2 Delivery Room Air Room Air 01/07/19 01/07/19 01/07/19 01/07/19 11:29 12:29 15:00 16:52 Temp 97.2 97.2 Pulse 65 Resp 18 16 16 B/P (MAP) 140/68 (92) Pulse Ox 98 O2 Delivery Room Air Room Air Room Air Room Air 01/07/19 01/07/19 01/07/19 01/07/19 16:54 19:00 20:44 22:54 Temp 97.9 97.7 97.9 97.7 Pulse 65 63 71 Resp 18 18 B/P (MAP) 140/68 136/65 (88) 140/71 (94) Pulse Ox 97 97 O2 Delivery Room Air Room Air Room Air 01/08/19 01/08/19 01/08/19 03:00 05:27 06:27 Temp 98.5 98.5 Pulse 72 Resp 18 16 16 B/P (MAP) 149/69 (95) Pulse Ox 96 O2 Delivery Room Air Room Air Room Air Intake and Output 01/07/19 01/07/19 01/08/19 14:59 22:59 06:59 Intake Total 300 ml Output Total 350 ml 600 ml Balance -350 ml -300 ml RUBI NORIEGA MD Jan 08, 2019 07:42
[2019-01-08] MEDS: FERROUS SULFATE 325 MG TABLET. PO SCH (08:03)
[2019-01-08] MEDS: CARVEDILOL 6.25 MG TABLET. PO SCH ×2 (08:03→17:04)
[2019-01-08] MEDS: glipiZIDE 5 MG TABLET PO SCH (08:03)
[2019-01-08] MEDS: NON FORMULARY ITEM (Abiraterone Acetate (Zytiga) 1,000 MG) PO SCH (09:00)
[2019-01-08] MEDS: TAMSULOSIN 0.4 MG CAP.ER.24H. PO SCH (09:49)
[2019-01-08] MEDS: ASPIRIN ENTERIC COATED 81 MG TABLET.DR. PO SCH (09:49)
[2019-01-08] MEDS: SENNOSIDES/DOCUSATE 8.6/50MG TABLET. PO SCH ×2 (09:49→20:34)
[2019-01-08] MEDS: MULTIVITAMIN with MINERAL TABLET. PO SCH (09:49)
[2019-01-08] MEDS: CYANOCOBALAMIN (VITAMIN B-12) 1,000 MCG TABLET. PO SCH (09:49)
[2019-01-08] MEDS: CLOPIDOGREL BISULFATE 75 MG TABLET PO SCH (09:49)
[2019-01-08] MEDS: LISINOPRIL 10 MG TABLET PO SCH (09:50)
[2019-01-08] MEDS: INSULIN LISPRO 300 UNITS/3 ML INSULN.PEN. SQ SCH ×3 (09:54→17:07)
[2019-01-08 11:00] VITALS: BP 125/67
--- NOTE | 2019-01-08 11:31 | NUR ---
SW following for discharge planning. Discussed with RN. PT/OT recommending SNU. ANDREA contacted pt's , Chana ([phone]) to discuss SNU placement, Chana would like referral sent to [facility]. SW phoned and faxed referral, insurance will need to auth for pt to go to SNU. RN notified. SW will continue to follow.
[2019-01-08] MEDS ORDERED: HYDR-2765 PO (12:01)
--- NOTE | 2019-01-08 12:09 | SNU/HH DC ---
DISCHARGE ORDERS DISCHARGE INFORMATION: DISCHARGE DATE: Jan 08, 2019 FINAL DIAGNOSIS Problems Medical Problems: (1) Fall Status: Acute (2) Right wrist fracture Status: Acute (3) Weakness generalized Status: Acute CONDITION ON DISCHARGE: Stable CODE STATUS: Code Status: Full GROUP HOME: SNF STAY <30 DAYS: Yes HOSPICE: HOSPICE: No HOSPICE EVAL & TREAT: No LTAC: ADMIT TO LTAC: No POST DISCHARGE ORDERS: ACTIVITY ORDERS: Resume previous activity WEIGHT BEARING STATUS: Full weight bearing BATHING ORDERS: Shower-keep dressing dry DIET AFTER DISCHARGE: Cardiac CHECKS AFTER DISCHARGE: CHECKS AFTER DISCHARGE: Check blood press - daily, Check your Temp as needed FOLLOW-UP: PHYSICIAN FOLLOW-UP: Dr. Kline - 2 weeks TREATMENT/EQUIPMENT ORDERS: ADAPTIVE EQUIPMENT NEEDED: None Physical Therapy For: Evalulation/Treatment Occupational Therapy For: Evaluation/Treatment DISCHARGE MEDICATIONS: Home Meds Active Scripts Hydrocodone Bit/Acetaminophen (HYDROCODONE-APAP 7.5-325 ) 1 Tab Tablet, 1 TAB PO PRN Q4HRS PRN for PAIN for 6 Days, #18 TAB Prov:RUBI NORIEGA MD 01/08/19 Reported Medications Glipizide (GLIPIZIDE) 5 Mg Tablet, 0.5 TAB PO DAILYWBKFT for diabetes, #60 TAB 3 Refills 01/07/19 Abiraterone Acetate (ZYTIGA) 250 Mg Tablet, 1000 MG PO DAILY for chemotherapy, TAB 01/07/19 Cyanocobalamin (Vitamin B-12) (VITAMIN B-12) 1,000 Mcg Tablet, 1 TAB PO DAILY for vitamin replacement, #30 TAB 5 Refills 01/07/19 Silodosin (RAPAFLO) 8 Mg Capsule, 4 MG PO DAILY for urinary retention, CAP 01/07/19 Multivitamin (MULTIVITAMINS) 1 Each Tablet, 1 TAB PO DAILY for vitamin replacement, #90 TAB 3 Refills 01/07/19 Lisinopril (LISINOPRIL) 10 Mg Tablet, 1 TAB PO DAILY for hypertension, #30 TAB 5 Refills 01/07/19 Ferrous Sulfate (FERROUS SULFATE) 325 Mg Tablet, 325 MG PO DAILYWBKFT for anemia , TAB 01/07/19 Famotidine (FAMOTIDINE) 20 Mg Tablet, 20 MG PO HS for heartburn prevention, TAB 01/07/19 Clopidogrel Bisulfate (CLOPIDOGREL) 75 Mg Tablet, 75 MG PO DAILY for stroke prevention, #30 TAB 0 Refills 01/07/19 Carvedilol (COREG ) 6.25 Mg Tablet, 6.25 MG PO BID for hypertension, TAB 01/07/19 Atorvastatin Calcium (ATORVASTATIN CALCIUM) 40 Mg Tablet, 40 MG PO DAILY for high cholesterol, #30 TAB 0 Refills 01/07/19 Aspirin (ASPIRIN EC) 81 Mg Tablet.dr, 81 MG PO DAILY for vascular health, TAB.SR 01/07/19 Discontinued Reported Medications Prednisone (PREDNISONE) 2.5 Mg Tablet, 2 TAB PO BID for inflammation, #90 TAB 3 Refills 01/07/19 Metformin Hcl (METFORMIN HCL) 1,000 Mg Tablet, 1000 MG PO BIDWMEALS for diabetes , TAB 01/07/19 Metformin Hcl (METFORMIN HCL) 850 Mg Tablet, 850 MG PO 01/25/14 RUBI NORIEGA MD Jan 08, 2019 12:09
--- NOTE | 2019-01-08 14:23 | PDOC ---
PROGRESS NOTES Assessment Problems Medical Problems: (1) Fall Status: Acute (2) Right wrist fracture Status: Acute (3) Weakness generalized Status: Acute Polyneuropathy, diabetic, workup for other causes negative or pending. No evidence of central nervous system disease or myelopathy. 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 History of stroke, resolved symptoms Plan [facility] unit Follow-up in my office for EMG/NCV studies I discussed with patient's daughter earlier this morning by phone as well as the patient's Subjective No complaints Objective Vital Signs Date Time Temp Pulse Resp B/P (MAP) Pulse Ox O2 Delivery O2 Flow Rate FiO2 01/08/19 11:00 98.1 75 18 125/67 (86) 96 Room Air 98.1 Intake and Output 01/08/19 07:00 Intake Total 300 ml Output Total 950 ml Balance -650 ml Intake Oral 300 ml Output Urine Total 950 ml PHYSICAL EXAM Alert. Oriented to time, place and person. PERRL. EOMI. CN: no focal findings. Muscle tone: normal. Muscle strength: 5/5 strength with normal tone and bulk, right arm in a cast DTR: 1+ Plantar reflex: flexor Gait: not examined in bed. Sensory exam: stocking loss. No cerebellar signs elicited. Review of Relevant I have reviewed the following items alysia (where applicable) has been applied. Labs Laboratory Tests Test 01/06/19 18:45 01/06/19 20:00 01/06/19 23:45 01/07/19 01:18 White Blood Count 8.2 x10^3/uL (4.0-11.0) Red Blood Count 4.37 x10^6/uL (4.30-5.70) Hemoglobin 13.9 g/dL (13.0-17.5) Hematocrit 41.4 % (39.0-53.0) Mean Corpuscular Volume 95 fL (79-100) Mean Corpuscular Hemoglobin 32 pg (25-35) Mean Corpuscular Hemoglobin Concent 34 g/dL (31-37) Red Cell Distribution Width 14.3 % (11.5-14.5) Platelet Count 227 x10^3/uL (140-400) Neutrophils (%) (Auto) 76 % (31-73) Lymphocytes (%) (Auto) 12 % (24-48) Monocytes (%) (Auto) 9 % (0-9) Eosinophils (%) (Auto) 2 % (0-3) Basophils (%) (Auto) 0 % (0-3) Neutrophils # (Auto) 6.2 x10^3uL (1.8-7.7) Lymphocytes # (Auto) 1.0 x10^3/uL (1.0-4.8) Monocytes # (Auto) 0.8 x10^3/uL (0.0-1.1) Eosinophils # (Auto) 0.1 x10^3/uL (0.0-0.7) Basophils # (Auto) 0.0 x10^3/uL (0.0-0.2) Prothrombin Time 12.9 SEC (11.7-14.0) Prothromb Time International Ratio 1.0 (0.8-1.1) Activated Partial Thromboplast Time 29 SEC (24-38) Sodium Level 139 mmol/L (136-145) Potassium Level 4.0 mmol/L (3.5-5.1) Chloride Level 101 mmol/L (98-107) Carbon Dioxide Level 28 mmol/L (21-32) Anion Gap 10 (6-14) Blood Urea Nitrogen 14 mg/dL (8-26) Creatinine 0.9 mg/dL (0.7-1.3) Estimated GFR (Cockcroft-Gault) 98.0 BUN/Creatinine Ratio 16 (6-20) Glucose Level 226 mg/dL (70-99) Calcium Level 9.3 mg/dL (8.5-10.1) Magnesium Level 1.7 mg/dL (1.8-2.4) Total Bilirubin 1.0 mg/dL (0.2-1.0) Aspartate Amino Transf (AST/SGOT) 15 U/L (15-37) Alanine Aminotransferase (ALT/SGPT) 17 U/L (16-63) Alkaline Phosphatase 53 U/L (46-116) Total Protein 7.3 g/dL (6.4-8.2) Albumin 3.3 g/dL (3.4-5.0) Albumin/Globulin Ratio 0.8 (1.0-1.7) Urine Collection Type Void Urine Color Yellow Urine Clarity Clear Urine pH 6.5 Urine Specific [place] 1.015 Urine Protein Negative mg/dL (NEG-TRACE) Urine Glucose (UA) 250 mg/dL (NEG) Urine Ketones (Stick) Negative mg/dL (NEG) Urine Blood Negative (NEG) Urine Nitrite Negative (NEG) Urine Bilirubin Negative (NEG) Urine Urobilinogen Dipstick 1.0 mg/dL (0.2 mg/dL) Urine Leukocyte Esterase Negative (NEG) Urine RBC 0 /HPF (0-2) Urine WBC 0 /HPF (0-4) Urine Squamous Epithelial Cells Few /LPF Urine Bacteria 0 /HPF (0-FEW) Glucose (Fingerstick) 237 mg/dL (70-99) Troponin I Quantitative < 0.017 ng/mL (0.000-0.055) Test 01/07/19 04:03 01/07/19 07:15 01/07/19 11:17 01/07/19 16:26 Troponin I Quantitative < 0.017 ng/mL (0.000-0.055) Glucose (Fingerstick) 228 mg/dL (70-99) 238 mg/dL (70-99) 225 mg/dL (70-99) Test 01/08/19 03:55 01/08/19 05:25 01/08/19 07:25 White Blood Count 5.5 x10^3/uL (4.0-11.0) Red Blood Count 4.13 x10^6/uL (4.30-5.70) Hemoglobin 12.8 g/dL (13.0-17.5) Hematocrit 39.3 % (39.0-53.0) Mean Corpuscular Volume 95 fL (79-100) Mean Corpuscular Hemoglobin 31 pg (25-35) Mean Corpuscular Hemoglobin Concent 33 g/dL (31-37) Red Cell Distribution Width 14.1 % (11.5-14.5) Platelet Count 211 x10^3/uL (140-400) Neutrophils (%) (Auto) 67 % (31-73) Lymphocytes (%) (Auto) 18 % (24-48) Monocytes (%) (Auto) 11 % (0-9) Eosinophils (%) (Auto) 5 % (0-3) Basophils (%) (Auto) 0 % (0-3) Neutrophils # (Auto) 3.7 x10^3uL (1.8-7.7) Lymphocytes # (Auto) 1.0 x10^3/uL (1.0-4.8) Monocytes # (Auto) 0.6 x10^3/uL (0.0-1.1) Eosinophils # (Auto) 0.2 x10^3/uL (0.0-0.7) Basophils # (Auto) 0.0 x10^3/uL (0.0-0.2) Erythrocyte Sedimentation Rate 30 (0-15) Sodium Level 140 mmol/L (136-145) Potassium Level 3.8 mmol/L (3.5-5.1) Chloride Level 103 mmol/L (98-107) Carbon Dioxide Level 30 mmol/L (21-32) Anion Gap 7 (6-14) Blood Urea Nitrogen 8 mg/dL (8-26) Creatinine 0.7 mg/dL (0.7-1.3) Estimated GFR (Cockcroft-Gault) 131.0 Glucose Level 190 mg/dL (70-99) Calcium Level 8.3 mg/dL (8.5-10.1) Magnesium Level 2.2 mg/dL (1.8-2.4) Vitamin B12 Level 872 pg/mL (247-911) 25-Hydroxy Vitamin D Total 24.9 ng/mL (30-100) Thyroid Stimulating Hormone (TSH) 2.147 uIU/mL (0.358-3.74) Glucose (Fingerstick) 188 mg/dL (70-99) 202 mg/dL (70-99) Laboratory Tests Test 01/07/19 16:26 01/08/19 03:55 01/08/19 05:25 01/08/19 07:25 Glucose (Fingerstick) 225 mg/dL (70-99) 188 mg/dL (70-99) 202 mg/dL (70-99) White Blood Count 5.5 x10^3/uL (4.0-11.0) Red Blood Count 4.13 x10^6/uL (4.30-5.70) Hemoglobin 12.8 g/dL (13.0-17.5) Hematocrit 39.3 % (39.0-53.0) Mean Corpuscular Volume 95 fL (79-100) Mean Corpuscular Hemoglobin 31 pg (25-35) Mean Corpuscular Hemoglobin Concent 33 g/dL (31-37) Red Cell Distribution Width 14.1 % (11.5-14.5) Platelet Count 211 x10^3/uL (140-400) Neutrophils (%) (Auto) 67 % (31-73) Lymphocytes (%) (Auto) 18 % (24-48) Monocytes (%) (Auto) 11 % (0-9) Eosinophils (%) (Auto) 5 % (0-3) Basophils (%) (Auto) 0 % (0-3) Neutrophils # (Auto) 3.7 x10^3uL (1.8-7.7) Lymphocytes # (Auto) 1.0 x10^3/uL (1.0-4.8) Monocytes # (Auto) 0.6 x10^3/uL (0.0-1.1) Eosinophils # (Auto) 0.2 x10^3/uL (0.0-0.7) Basophils # (Auto) 0.0 x10^3/uL (0.0-0.2) Erythrocyte Sedimentation Rate 30 (0-15) Sodium Level 140 mmol/L (136-145) Potassium Level 3.8 mmol/L (3.5-5.1) Chloride Level 103 mmol/L (98-107) Carbon Dioxide Level 30 mmol/L (21-32) Anion Gap 7 (6-14) Blood Urea Nitrogen 8 mg/dL (8-26) Creatinine 0.7 mg/dL (0.7-1.3) Estimated GFR (Cockcroft-Gault) 131.0 Glucose Level 190 mg/dL (70-99) Calcium Level 8.3 mg/dL (8.5-10.1) Magnesium Level 2.2 mg/dL (1.8-2.4) Vitamin B12 Level 872 pg/mL (247-911) 25-Hydroxy Vitamin D Total 24.9 ng/mL (30-100) Thyroid Stimulating Hormone (TSH) 2.147 uIU/mL (0.358-3.74) Medications Current Medications Sodium Chloride 1,000 ml @ 1,000 mls/hr 1X ONCE IV Last administered on at 19:32; Start 01/06/19 at 18:30; Stop 01/06/19 at 19:29; Status DC Fentanyl Citrate (Fentanyl 2ml Vial) 50 mcg 1X ONCE IV Last administered on 19:30; Start 01/06/19 at 18:30; Stop 01/06/19 at 18:34; Status DC Insulin Human Lispro (HumaLOG) 0-5 UNITS TIDWMEALS SQ Last administered on 12:30; Start 01/07/19 at 08:00 Dextrose (Dextrose 50%-Water Syringe) 12.5 gm PRN Q15MIN PRN IV SEE COMMENTS; Start 01/06/19 at 22:30 Fentanyl Citrate (Fentanyl 2ml Vial) 50 mcg PRN Q3HRS PRN IV MODERATE PAIN Last administered on 01/07/19 07:50; Start 01/06/19 at 22:45; Stop 01/07/19 at 07: 50; Status DC Magnesium Sulfate 50 ml @ 25 mls/hr 1X ONCE IV Last administered on 01/07/19 09:38; Start 01/07/19 at 08:30; Stop 01/07/19 at 10:29; Status DC Ondansetron HCl (Zofran) 4 mg PRN Q6HRS PRN IV NAUSEA/VOMITING; Start 01/07/19 at 08:00 Acetaminophen/ Hydrocodone Bitart (Lortab 5/325) 1 tab PRN Q4HRS PRN PO MODERATE-SEVERE PAIN; Start 01/07/19 at 08:00; Stop 01/07/19 at 10:54; Status DC Acetaminophen (Tylenol) 650 mg PRN Q6HRS PRN PO Headaches, Temp > 101.5F; Start 01/07/19 at 08:00 Senna/Docusate Sodium (Senna Plus) 1 tab BID PO Last administered on 01/08/19 09:49; Start 01/07/19 at 09:00 Magnesium Hydroxide (Milk Of Magnesia) 2,400 mg PRN Q12HR PRN PO CONSTIPATION; Start 01/07/19 at 08:00 Heparin Sodium (Porcine) (Heparin Sodium) 5,000 unit Q8HRS SQ Last administered on 01/08/19 05:47; Start 01/07/19 at 14:00 Aspirin (Ecotrin) 81 mg DAILY PO Last administered on 01/08/19 09:49; Start 01/07/19 at 09:00 Atorvastatin Calcium (Lipitor) 40 mg QHS PO Last administered on 3/6/19at 21:40 ; Start 01/07/19 at 21:00 Carvedilol (Coreg) 6.25 mg BIDWMEALS PO Last administered on 01/08/19 08:03; Start 01/07/19 at 09:00 Clopidogrel Bisulfate (Plavix) 75 mg DAILY PO Last administered on 01/08/19 09: 49; Start 01/07/19 at 09:00 Cyanocobalamin (Vitamin B-12) 1,000 mcg DAILY PO Last administered on 01/08/19 09:49; Start 01/07/19 at 09:00 Famotidine (Pepcid) 20 mg HS PO Last administered on 01/07/19 21:40; Start 01/07 at 21:00 Ferrous Sulfate (Feosol) 325 mg DAILYWBKFT PO Last administered on 01/08/19 08: 03; Start 01/07/19 at 09:00 Glipizide (Glucotrol) 2.5 mg DAILYWBKFT PO Last administered on 01/08/19 08:03 ; Start 01/07/19 at 09:00 Lisinopril (Prinivil) 10 mg DAILY PO Last administered on 01/08/19 09:50; Start 01/07/19 at 09:00 Non-Formulary Medication (Abiraterone Acetate (Zytiga)) 1,000 mg DAILY PO ; Start 01/07/19 at 09:00; Status UNV Multivitamins (Thera M Plus) 1 tab DAILY PO Last administered on 01/08/19 09:49 ; Start 01/07/19 at 09:00 Tamsulosin HCl (Flomax) 0.4 mg DAILY PO Last administered on 01/08/19 09:49; Start 01/07/19 at 09:00 Acetaminophen/ Hydrocodone Bitart (Lortab 7.5/325) 1 tab PRN Q6HRS PRN PO PAIN Last administered on 01/07/19 11:29; Start 01/07/19 at 11:00; Stop 01/07/19 at 16: 47; Status DC Acetaminophen/ Hydrocodone Bitart (Lortab 7.5/325) 1 tab PRN Q4HRS PRN PO PAIN Last administered on 01/08/19 05:27; Start 01/07/19 at 17:00 Active Scripts Active Hydrocodone-Apap 7.5-325 (Hydrocodone Bit/Acetaminophen) 1 Tab Tablet 1 Tab PO PRN Q4HRS PRN 6 Days Reported Glipizide 5 Mg Tablet 0.5 Tab PO DAILYWBKFT Zytiga (Abiraterone Acetate) 250 Mg Tablet 1,000 Mg PO DAILY Vitamin B-12 (Cyanocobalamin (Vitamin B-12)) 1,000 Mcg Tablet 1 Tab PO DAILY Rapaflo (Silodosin) 8 Mg Capsule 4 Mg PO DAILY Multivitamins (Multivitamin) 1 Each Tablet 1 Tab PO DAILY Lisinopril 10 Mg Tablet 1 Tab PO DAILY Ferrous Sulfate 325 Mg Tablet 325 Mg PO DAILYWBKFT Famotidine 20 Mg Tablet 20 Mg PO HS Clopidogrel (Clopidogrel Bisulfate) 75 Mg Tablet 75 Mg PO DAILY Coreg (Carvedilol) 6.25 Mg Tablet 6.25 Mg PO BID Atorvastatin Calcium 40 Mg Tablet 40 Mg PO DAILY Aspirin Ec (Aspirin) 81 Mg Tablet.dr 81 Mg PO DAILY Vitals/I & O Vital Sign - Last 24 Hours 01/07/19 01/07/19 01/07/19 01/07/19 15:00 16:52 16:54 19:00 Temp 97.2 97.9 97.2 97.9 Pulse 65 65 63 Resp 16 18 B/P (MAP) 140/68 (92) 140/68 136/65 (88) Pulse Ox 98 97 O2 Delivery Room Air Room Air Room Air 01/07/19 01/07/19 01/08/19 01/08/19 20:44 22:54 03:00 05:27 Temp 97.7 98.5 97.7 98.5 Pulse 71 72 Resp 18 18 16 B/P (MAP) 140/71 (94) 149/69 (95) Pulse Ox 97 96 O2 Delivery Room Air Room Air Room Air Room Air 01/08/19 01/08/19 01/08/19 01/08/19 06:27 07:00 07:45 08:03 Temp 97.8 97.8 Pulse 65 65 Resp 16 16 B/P (MAP) 142/69 (93) 142/69 Pulse Ox 97 O2 Delivery Room Air Room Air Room Air 01/08/19 01/08/19 09:50 11:00 Temp 98.1 98.1 Pulse 65 75 Resp 18 B/P (MAP) 142/69 125/67 (86) Pulse Ox 96 O2 Delivery Room Air Intake and Output 01/07/19 01/07/19 01/08/19 15:00 23:00 07:00 Intake Total 300 ml Output Total 350 ml 600 ml Balance -350 ml -300 ml MITCHELL MAYFIELD MD Jan 08, 2019 14:23
[2019-01-08 15:00] VITALS: BP 154/66
[2019-01-08 19:00] VITALS: BP 151/70
[2019-01-08] MEDS: FAMOTIDINE 20 MG TABLET. PO SCH (20:34)
[2019-01-08] MEDS: ATORVASTATIN CALCIUM 40 MG TABLET. PO SCH (20:34)
[2019-01-08 23:00] VITALS: BP 122/80
--- NOTE | 2019-01-08 23:04 | NUR ---
Found condom catheter leaking and saturated patient and bed due to malfunction. Patient cleaned up and linens, gown changed. Catheter removed by this RN and patient placed in briefs to manage incontinence, urinal placed at bedside. Patient states he does feel the urge when he has to urinate and will attempt use the urinal. Will continue to monitor the patient.
[2019-01-08 23:15] LABS: HEMOGLOBIN A1C 9.2 % (4.8-5.6)
[2019-01-09 02:57] VITALS: BP 150/81
[2019-01-09] MEDS: HEPARIN for SUB-Q USE 5,000 UNIT/ML VIAL. SQ SCH (06:12)
[2019-01-09 07:10] VITALS: BP 153/75
[2019-01-09 07:45] LABS: CALCIUM 8.2 mg/dL (8.5-10.1); CREATININE 0.8 mg/dL (0.7-1.3); GFR 112.3; POTASSIUM 3.9 mmol/L (3.5-5.1)
--- NOTE | 2019-01-09 08:02 | PDOC ---
PROGRESS NOTES Chief Complaint Chief Complaint A/P: Right wrist fracture - non-operative at this point, will increase hydrocodone to 7.5mg. Ortho consulted. Cont sling. OT to see. PT as well Fall - with prior CVA, will have neurology to see, PT as well Prostate cancer - on maintenance therapy DM2 - sliding scale in house HTN - cont meds CAD - cont meds, stable, history of stenting FEN - ADA cardiac PPX - Heparin FULL CODE Inpatient for right wrist fracture, falls with multiple co-morbids. Will need full skilled rehab services on d/c History of Present Illness History of Present Illness 83 yo w/ PMHx prostate cancer, DM2, HTN, CAD, prior CVA who presents with wrist pain after a fall. Patient stated he was getting up to go to the bathroom at home and lost his balance while reaching for his walker. He fell towards the wall, held his hand out to catch himself, and fell down onto the floor on his outstretched right hand. The pain is located on the left ulnar headache and slightly medial. He rated the pain as a 10/10 throbbing pain that does not radiate. Patient does not remember hitting his head or losing consciousness. He did have a stroke affecting the left side of his body several years ago, treated at , with resolution of symptoms. There is no history of seizure or head injury. 01/08: He states the pain is not as well controlled with 5mg hydrocodone as he would like, still 6/10 now. Ambulating with platform walker, however, he almost falls with dual assist. PT recommends SNF Slipped from seat onto towel, did not injure his head or arm, fell onto his buttocks. He still feels off balance. No chest pain. He has not urinated, had some incontinence, had [place] condom cath. No SOB Plan: Gait training for apraxia Needs SNF Pain control for right arm Ortho f/u Diabetic control, increase insulin coverage, add basal coverage. Vitals Vitals Vital Signs Date Time Temp Pulse Resp B/P (MAP) Pulse Ox O2 Delivery O2 Flow Rate FiO2 01/09/19 07:10 98.3 50 18 153/75 (101) 97 Room Air 98.3 Physical Exam General: Alert, Oriented X3, Cooperative, No acute distress Heart: Regular rate Abdomen: Normal bowel sounds, Soft, No tenderness, No hepatosplenomegaly, No masses Extremities: No clubbing, No cyanosis, No edema, Normal pulses, Other (Right arm in sling, hand swollen, pulses intact) Skin: No rashes, No breakdown, No significant lesion Labs LABS Laboratory Tests Test 01/08/19 10:48 01/08/19 16:59 01/08/19 20:31 01/09/19 05:55 Glucose (Fingerstick) 197 mg/dL (70-99) 266 mg/dL (70-99) 237 mg/dL (70-99) Sodium Level 139 mmol/L (136-145) Potassium Level 3.9 mmol/L (3.5-5.1) Chloride Level 102 mmol/L (98-107) Carbon Dioxide Level 29 mmol/L (21-32) Anion Gap 8 (6-14) Blood Urea Nitrogen 10 mg/dL (8-26) Creatinine 0.8 mg/dL (0.7-1.3) Estimated GFR (Cockcroft-Gault) 112.3 Glucose Level 233 mg/dL (70-99) Calcium Level 8.2 mg/dL (8.5-10.1) Assessment and Plan Assessmemt and Plan Problems Medical Problems: (1) Fall Status: Acute (2) Right wrist fracture Status: Acute (3) Weakness generalized Status: Acute Comment Review of Relevant I have reviewed the following items alysia (where applicable) has been applied. Labs Laboratory Tests Test 01/07/19 11:17 01/07/19 16:26 01/08/19 03:55 01/08/19 05:25 Glucose (Fingerstick) 238 mg/dL (70-99) 225 mg/dL (70-99) 188 mg/dL (70-99) White Blood Count 5.5 x10^3/uL (4.0-11.0) Red Blood Count 4.13 x10^6/uL (4.30-5.70) Hemoglobin 12.8 g/dL (13.0-17.5) Hematocrit 39.3 % (39.0-53.0) Mean Corpuscular Volume 95 fL (79-100) Mean Corpuscular Hemoglobin 31 pg (25-35) Mean Corpuscular Hemoglobin Concent 33 g/dL (31-37) Red Cell Distribution Width 14.1 % (11.5-14.5) Platelet Count 211 x10^3/uL (140-400) Neutrophils (%) (Auto) 67 % (31-73) Lymphocytes (%) (Auto) 18 % (24-48) Monocytes (%) (Auto) 11 % (0-9) Eosinophils (%) (Auto) 5 % (0-3) Basophils (%) (Auto) 0 % (0-3) Neutrophils # (Auto) 3.7 x10^3uL (1.8-7.7) Lymphocytes # (Auto) 1.0 x10^3/uL (1.0-4.8) Monocytes # (Auto) 0.6 x10^3/uL (0.0-1.1) Eosinophils # (Auto) 0.2 x10^3/uL (0.0-0.7) Basophils # (Auto) 0.0 x10^3/uL (0.0-0.2) Erythrocyte Sedimentation Rate 30 (0-15) Sodium Level 140 mmol/L (136-145) Potassium Level 3.8 mmol/L (3.5-5.1) Chloride Level 103 mmol/L (98-107) Carbon Dioxide Level 30 mmol/L (21-32) Anion Gap 7 (6-14) Blood Urea Nitrogen 8 mg/dL (8-26) Creatinine 0.7 mg/dL (0.7-1.3) Estimated GFR (Cockcroft-Gault) 131.0 Glucose Level 190 mg/dL (70-99) Hemoglobin A1c 9.2 % (4.8-5.6) Calcium Level 8.3 mg/dL (8.5-10.1) Magnesium Level 2.2 mg/dL (1.8-2.4) Vitamin B12 Level 872 pg/mL (247-911) 25-Hydroxy Vitamin D Total 24.9 ng/mL (30-100) Thyroid Stimulating Hormone (TSH) 2.147 uIU/mL (0.358-3.74) Test 01/08/19 07:25 01/08/19 10:48 01/08/19 16:59 01/08/19 20:31 Glucose (Fingerstick) 202 mg/dL (70-99) 197 mg/dL (70-99) 266 mg/dL (70-99) 237 mg/dL (70-99) Test 01/09/19 05:55 Sodium Level 139 mmol/L (136-145) Potassium Level 3.9 mmol/L (3.5-5.1) Chloride Level 102 mmol/L (98-107) Carbon Dioxide Level 29 mmol/L (21-32) Anion Gap 8 (6-14) Blood Urea Nitrogen 10 mg/dL (8-26) Creatinine 0.8 mg/dL (0.7-1.3) Estimated GFR (Cockcroft-Gault) 112.3 Glucose Level 233 mg/dL (70-99) Calcium Level 8.2 mg/dL (8.5-10.1) Laboratory Tests Test 01/08/19 10:48 01/08/19 16:59 01/08/19 20:31 01/09/19 05:55 Glucose (Fingerstick) 197 mg/dL (70-99) 266 mg/dL (70-99) 237 mg/dL (70-99) Sodium Level 139 mmol/L (136-145) Potassium Level 3.9 mmol/L (3.5-5.1) Chloride Level 102 mmol/L (98-107) Carbon Dioxide Level 29 mmol/L (21-32) Anion Gap 8 (6-14) Blood Urea Nitrogen 10 mg/dL (8-26) Creatinine 0.8 mg/dL (0.7-1.3) Estimated GFR (Cockcroft-Gault) 112.3 Glucose Level 233 mg/dL (70-99) Calcium Level 8.2 mg/dL (8.5-10.1) Medications Current Medications Sodium Chloride 1,000 ml @ 1,000 mls/hr 1X ONCE IV Last administered on at 19:32; Start 01/06/19 at 18:30; Stop 01/06/19 at 19:29; Status DC Fentanyl Citrate (Fentanyl 2ml Vial) 50 mcg 1X ONCE IV Last administered on 01/06/19at 19:30; Start 01/06/19 at 18:30; Stop 01/06/19 at 18:34; Status DC Insulin Human Lispro (HumaLOG) 0-5 UNITS TIDWMEALS SQ Last administered on at 17:07; Start 01/07/19 at 08:00 Dextrose (Dextrose 50%-Water Syringe) 12.5 gm PRN Q15MIN PRN IV SEE COMMENTS; Start 01/06/19 at 22:30 Fentanyl Citrate (Fentanyl 2ml Vial) 50 mcg PRN Q3HRS PRN IV MODERATE PAIN Last administered on 01/07/19at 07:50; Start 01/06/19 at 22:45; Stop 01/07/19 at 07: 50; Status DC Magnesium Sulfate 50 ml @ 25 mls/hr 1X ONCE IV Last administered on 01/07/19 09:38; Start 01/07/19 at 08:30; Stop 01/07/19 at 10:29; Status DC Ondansetron HCl (Zofran) 4 mg PRN Q6HRS PRN IV NAUSEA/VOMITING; Start 01/07/19 at 08:00 Acetaminophen/ Hydrocodone Bitart (Lortab 5/325) 1 tab PRN Q4HRS PRN PO MODERATE-SEVERE PAIN; Start 01/07/19 at 08:00; Stop 01/07/19 at 10:54; Status DC Acetaminophen (Tylenol) 650 mg PRN Q6HRS PRN PO Headaches, Temp > 101.5F; Start 01/07/19 at 08:00 Senna/Docusate Sodium (Senna Plus) 1 tab BID PO Last administered on 01/08/19 20:34; Start 01/07/19 at 09:00 Magnesium Hydroxide (Milk Of Magnesia) 2,400 mg PRN Q12HR PRN PO CONSTIPATION; Start 01/07/19 at 08:00 Heparin Sodium (Porcine) (Heparin Sodium) 5,000 unit Q8HRS SQ Last administered on 01/09/19 06:12; Start 01/07/19 at 14:00 Aspirin (Ecotrin) 81 mg DAILY PO Last administered on 01/08/19 09:49; Start 01/07/19 at 09:00 Atorvastatin Calcium (Lipitor) 40 mg QHS PO Last administered on 01/08/19 20:34 ; Start 01/07/19 at 21:00 Carvedilol (Coreg) 6.25 mg BIDWMEALS PO Last administered on 01/08/19 17:04; Start 01/07/19 at 09:00 Clopidogrel Bisulfate (Plavix) 75 mg DAILY PO Last administered on 01/08/19 09: 49; Start 01/07/19 at 09:00 Cyanocobalamin (Vitamin B-12) 1,000 mcg DAILY PO Last administered on 01/08/19 09:49; Start 01/07/19 at 09:00 Famotidine (Pepcid) 20 mg HS PO Last administered on 01/08/19 20:34; Start 01/07 at 21:00 Ferrous Sulfate (Feosol) 325 mg DAILYWBKFT PO Last administered on 01/08/19 08: 03; Start 01/07/19 at 09:00 Glipizide (Glucotrol) 2.5 mg DAILYWBKFT PO Last administered on 01/08/19 08:03 ; Start 01/07/19 at 09:00 Lisinopril (Prinivil) 10 mg DAILY PO Last administered on 01/08/19 09:50; Start 01/07/19 at 09:00 Non-Formulary Medication (Abiraterone Acetate (Zytiga)) 1,000 mg DAILY PO ; Start 01/07/19 at 09:00; Status UNV Multivitamins (Thera M Plus) 1 tab DAILY PO Last administered on 01/08/19 09:49 ; Start 01/07/19 at 09:00 Tamsulosin HCl (Flomax) 0.4 mg DAILY PO Last administered on 01/08/19 09:49; Start 01/07/19 at 09:00 Acetaminophen/ Hydrocodone Bitart (Lortab 7.5/325) 1 tab PRN Q6HRS PRN PO PAIN Last administered on 01/07/19 11:29; Start 01/07/19 at 11:00; Stop 01/07/19 at 16: 47; Status DC Acetaminophen/ Hydrocodone Bitart (Lortab 7.5/325) 1 tab PRN Q4HRS PRN PO PAIN Last administered on 01/08/19 22:20; Start 01/07/19 at 17:00 Active Scripts Active Hydrocodone-Apap 7.5-325 (Hydrocodone Bit/Acetaminophen) 1 Tab Tablet 1 Tab PO PRN Q4HRS PRN 6 Days Reported Glipizide 5 Mg Tablet 0.5 Tab PO DAILYWBKFT Zytiga (Abiraterone Acetate) 250 Mg Tablet 1,000 Mg PO DAILY Vitamin B-12 (Cyanocobalamin (Vitamin B-12)) 1,000 Mcg Tablet 1 Tab PO DAILY Rapaflo (Silodosin) 8 Mg Capsule 4 Mg PO DAILY Multivitamins (Multivitamin) 1 Each Tablet 1 Tab PO DAILY Lisinopril 10 Mg Tablet 1 Tab PO DAILY Ferrous Sulfate 325 Mg Tablet 325 Mg PO DAILYWBKFT Famotidine 20 Mg Tablet 20 Mg PO HS Clopidogrel (Clopidogrel Bisulfate) 75 Mg Tablet 75 Mg PO DAILY Coreg (Carvedilol) 6.25 Mg Tablet 6.25 Mg PO BID Atorvastatin Calcium 40 Mg Tablet 40 Mg PO DAILY Aspirin Ec (Aspirin) 81 Mg Tablet.dr 81 Mg PO DAILY Vitals/I & O Vital Sign - Last 24 Hours 01/08/19 01/08/19 01/08/19 01/08/19 08:03 09:50 11:00 15:00 Temp 98.1 98.1 98.1 98.1 Pulse 65 65 75 81 Resp 18 16 B/P (MAP) 142/69 142/69 125/67 (86) 154/66 (95) Pulse Ox 96 95 O2 Delivery Room Air Room Air 01/08/19 01/08/19 01/08/19 01/08/19 17:04 17:04 18:04 19:00 Temp 97.8 97.8 Pulse 81 69 Resp 16 16 18 B/P (MAP) 154/66 151/70 (97) Pulse Ox 92 O2 Delivery Room Air Room Air 01/08/19 01/08/19 01/08/19 01/08/19 20:00 22:20 23:00 23:20 Temp 97.9 97.9 Pulse 68 Resp 18 B/P (MAP) 122/80 (94) Pulse Ox 92 98 98 O2 Delivery Room Air Room Air Room Air Room Air 01/09/19 01/09/19 02:57 07:10 Temp 98.0 98.3 98.0 98.3 Pulse 67 50 Resp 18 18 B/P (MAP) 150/81 (104) 153/75 (101) Pulse Ox 94 97 O2 Delivery Room Air Room Air Intake and Output 01/08/19 01/08/19 01/09/19 15:00 23:00 07:00 Output Total 1150 ml 375 ml Balance -1150 ml -375 ml RUBI NORIEGA MD Jan 09, 2019 08:02
[2019-01-09] MEDS ORDERED: INSULIN GLARGINE 300 UNITS/3 ML INSULN.PEN. SQ SCH (08:30)
[2019-01-09] MEDS: MULTIVITAMIN with MINERAL TABLET. PO SCH (08:54)
[2019-01-09] MEDS: ASPIRIN ENTERIC COATED 81 MG TABLET.DR. PO SCH (08:54)
[2019-01-09] MEDS: CLOPIDOGREL BISULFATE 75 MG TABLET PO SCH (08:54)
[2019-01-09] MEDS: HYDROcodone/APAP 7.5/325MG 1 TAB TABLET PO PRN (08:54)
[2019-01-09] MEDS: CYANOCOBALAMIN (VITAMIN B-12) 1,000 MCG TABLET. PO SCH (08:54)
[2019-01-09] MEDS: LISINOPRIL 10 MG TABLET PO SCH (08:54)
[2019-01-09] MEDS: glipiZIDE 5 MG TABLET PO SCH (08:54)
[2019-01-09] MEDS: SENNOSIDES/DOCUSATE 8.6/50MG TABLET. PO SCH (08:54)
[2019-01-09] MEDS: FERROUS SULFATE 325 MG TABLET. PO SCH (08:54)
[2019-01-09] MEDS: TAMSULOSIN 0.4 MG CAP.ER.24H. PO SCH (08:54)
[2019-01-09] MEDS: CARVEDILOL 6.25 MG TABLET. PO SCH (08:57)
[2019-01-09] MEDS: INSULIN LISPRO 300 UNITS/3 ML INSULN.PEN. SQ SCH ×4 (09:07→12:00)
[2019-01-09] MEDS: NON FORMULARY ITEM (Abiraterone Acetate (Zytiga) 1,000 MG) PO SCH (09:08)
--- NOTE | 2019-01-09 09:16 | PDOC ---
PROGRESS NOTES Assessment Problems Medical Problems: (1) Fall Status: Acute (2) Right wrist fracture Status: Acute (3) Weakness generalized Status: Acute Polyneuropathy, diabetic, workup for other causes negative or pending.Hemoglobin A-1 C is 9.2 No evidence of central nervous system disease or myelopathy. 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 History of stroke, resolved symptoms Plan halfway unit Follow-up in my office for EMG/NCV studies Subjective No complaints, denies pain Objective Vital Signs Date Time Temp Pulse Resp B/P (MAP) Pulse Ox O2 Delivery O2 Flow Rate FiO2 01/09/19 08:57 64 153/75 01/09/19 08:54 Room Air 01/09/19 07:10 98.3 18 97 98.3 Intake and Output 01/09/19 06:59 Output Total 1525 ml Balance -1525 ml Output Urine Total 1525 ml # Voids 1 PHYSICAL EXAM Alert. Oriented to time, place and person. PERRL. EOMI. CN: no focal findings. Muscle tone: normal. Muscle strength: 5/5 strength with normal tone and bulk, right arm in a cast DTR: 1+ Plantar reflex: flexor Gait: not examined in bed. Sensory exam: stocking loss. No cerebellar signs elicited. Review of Relevant I have reviewed the following items alysia (where applicable) has been applied. Labs Laboratory Tests Test 01/07/19 11:17 01/07/19 16:26 01/08/19 03:55 01/08/19 05:25 Glucose (Fingerstick) 238 mg/dL (70-99) 225 mg/dL (70-99) 188 mg/dL (70-99) White Blood Count 5.5 x10^3/uL (4.0-11.0) Red Blood Count 4.13 x10^6/uL (4.30-5.70) Hemoglobin 12.8 g/dL (13.0-17.5) Hematocrit 39.3 % (39.0-53.0) Mean Corpuscular Volume 95 fL (79-100) Mean Corpuscular Hemoglobin 31 pg (25-35) Mean Corpuscular Hemoglobin Concent 33 g/dL (31-37) Red Cell Distribution Width 14.1 % (11.5-14.5) Platelet Count 211 x10^3/uL (140-400) Neutrophils (%) (Auto) 67 % (31-73) Lymphocytes (%) (Auto) 18 % (24-48) Monocytes (%) (Auto) 11 % (0-9) Eosinophils (%) (Auto) 5 % (0-3) Basophils (%) (Auto) 0 % (0-3) Neutrophils # (Auto) 3.7 x10^3uL (1.8-7.7) Lymphocytes # (Auto) 1.0 x10^3/uL (1.0-4.8) Monocytes # (Auto) 0.6 x10^3/uL (0.0-1.1) Eosinophils # (Auto) 0.2 x10^3/uL (0.0-0.7) Basophils # (Auto) 0.0 x10^3/uL (0.0-0.2) Erythrocyte Sedimentation Rate 30 (0-15) Sodium Level 140 mmol/L (136-145) Potassium Level 3.8 mmol/L (3.5-5.1) Chloride Level 103 mmol/L (98-107) Carbon Dioxide Level 30 mmol/L (21-32) Anion Gap 7 (6-14) Blood Urea Nitrogen 8 mg/dL (8-26) Creatinine 0.7 mg/dL (0.7-1.3) Estimated GFR (Cockcroft-Gault) 131.0 Glucose Level 190 mg/dL (70-99) Hemoglobin A1c 9.2 % (4.8-5.6) Calcium Level 8.3 mg/dL (8.5-10.1) Magnesium Level 2.2 mg/dL (1.8-2.4) Vitamin B12 Level 872 pg/mL (247-911) 25-Hydroxy Vitamin D Total 24.9 ng/mL (30-100) Thyroid Stimulating Hormone (TSH) 2.147 uIU/mL (0.358-3.74) Test 01/08/19 07:25 01/08/19 10:48 01/08/19 16:59 01/08/19 20:31 Glucose (Fingerstick) 202 mg/dL (70-99) 197 mg/dL (70-99) 266 mg/dL (70-99) 237 mg/dL (70-99) Test 01/09/19 05:55 01/09/19 07:19 Sodium Level 139 mmol/L (136-145) Potassium Level 3.9 mmol/L (3.5-5.1) Chloride Level 102 mmol/L (98-107) Carbon Dioxide Level 29 mmol/L (21-32) Anion Gap 8 (6-14) Blood Urea Nitrogen 10 mg/dL (8-26) Creatinine 0.8 mg/dL (0.7-1.3) Estimated GFR (Cockcroft-Gault) 112.3 Glucose Level 233 mg/dL (70-99) Calcium Level 8.2 mg/dL (8.5-10.1) Glucose (Fingerstick) 234 mg/dL (70-99) Laboratory Tests Test 01/08/19 10:48 01/08/19 16:59 01/08/19 20:31 01/09/19 05:55 Glucose (Fingerstick) 197 mg/dL (70-99) 266 mg/dL (70-99) 237 mg/dL (70-99) Sodium Level 139 mmol/L (136-145) Potassium Level 3.9 mmol/L (3.5-5.1) Chloride Level 102 mmol/L (98-107) Carbon Dioxide Level 29 mmol/L (21-32) Anion Gap 8 (6-14) Blood Urea Nitrogen 10 mg/dL (8-26) Creatinine 0.8 mg/dL (0.7-1.3) Estimated GFR (Cockcroft-Gault) 112.3 Glucose Level 233 mg/dL (70-99) Calcium Level 8.2 mg/dL (8.5-10.1) Test 01/09/19 07:19 Glucose (Fingerstick) 234 mg/dL (70-99) Medications Current Medications Sodium Chloride 1,000 ml @ 1,000 mls/hr 1X ONCE IV Last administered on at 19:32; Start 01/06/19 at 18:30; Stop 01/06/19 at 19:29; Status DC Fentanyl Citrate (Fentanyl 2ml Vial) 50 mcg 1X ONCE IV Last administered on 01/06/19at 19:30; Start 01/06/19 at 18:30; Stop 01/06/19 at 18:34; Status DC Insulin Human Lispro (HumaLOG) 0-5 UNITS TIDWMEALS SQ Last administered on 09:08; Start 01/07/19 at 08:00 Dextrose (Dextrose 50%-Water Syringe) 12.5 gm PRN Q15MIN PRN IV SEE COMMENTS; Start 01/06/19 at 22:30 Fentanyl Citrate (Fentanyl 2ml Vial) 50 mcg PRN Q3HRS PRN IV MODERATE PAIN Last administered on 01/07/19 07:50; Start 01/06/19 at 22:45; Stop 01/07/19 at 07: 50; Status DC Magnesium Sulfate 50 ml @ 25 mls/hr 1X ONCE IV Last administered on 01/07/19 09:38; Start 01/07/19 at 08:30; Stop 01/07/19 at 10:29; Status DC Ondansetron HCl (Zofran) 4 mg PRN Q6HRS PRN IV NAUSEA/VOMITING; Start 01/07/19 at 08:00 Acetaminophen/ Hydrocodone Bitart (Lortab 5/325) 1 tab PRN Q4HRS PRN PO MODERATE-SEVERE PAIN; Start 01/07/19 at 08:00; Stop 01/07/19 at 10:54; Status DC Acetaminophen (Tylenol) 650 mg PRN Q6HRS PRN PO Headaches, Temp > 101.5F; Start 01/07/19 at 08:00 Senna/Docusate Sodium (Senna Plus) 1 tab BID PO Last administered on 01/09/19 08:54; Start 01/07/19 at 09:00 Magnesium Hydroxide (Milk Of Magnesia) 2,400 mg PRN Q12HR PRN PO CONSTIPATION; Start 01/07/19 at 08:00 Heparin Sodium (Porcine) (Heparin Sodium) 5,000 unit Q8HRS SQ Last administered on 01/09/19 06:12; Start 01/07/19 at 14:00 Aspirin (Ecotrin) 81 mg DAILY PO Last administered on 01/09/19 08:54; Start 01/07/19 at 09:00 Atorvastatin Calcium (Lipitor) 40 mg QHS PO Last administered on 01/08/19 20:34 ; Start 01/07/19 at 21:00 Carvedilol (Coreg) 6.25 mg BIDWMEALS PO Last administered on 01/09/19 08:57; Start 01/07/19 at 09:00 Clopidogrel Bisulfate (Plavix) 75 mg DAILY PO Last administered on 01/09/19 08: 54; Start 01/07/19 at 09:00 Cyanocobalamin (Vitamin B-12) 1,000 mcg DAILY PO Last administered on 01/09/19 08:54; Start 01/07/19 at 09:00 Famotidine (Pepcid) 20 mg HS PO Last administered on 01/08/19 20:34; Start 01/07 at 21:00 Ferrous Sulfate (Feosol) 325 mg DAILYWBKFT PO Last administered on 01/09/19 08: 54; Start 01/07/19 at 09:00 Glipizide (Glucotrol) 2.5 mg DAILYWBKFT PO Last administered on 01/09/19 08:54 ; Start 01/07/19 at 09:00 Lisinopril (Prinivil) 10 mg DAILY PO Last administered on 01/09/19 08:54; Start 01/07/19 at 09:00 Non-Formulary Medication (Abiraterone Acetate (Zytiga)) 1,000 mg DAILY PO ; Start 01/07/19 at 09:00; Status UNV Multivitamins (Thera M Plus) 1 tab DAILY PO Last administered on 01/09/19 08:54 ; Start 01/07/19 at 09:00 Tamsulosin HCl (Flomax) 0.4 mg DAILY PO Last administered on 01/09/19 08:54; Start 01/07/19 at 09:00 Acetaminophen/ Hydrocodone Bitart (Lortab 7.5/325) 1 tab PRN Q6HRS PRN PO PAIN Last administered on 01/07/19 11:29; Start 01/07/19 at 11:00; Stop 01/07/19 at 16: 47; Status DC Acetaminophen/ Hydrocodone Bitart (Lortab 7.5/325) 1 tab PRN Q4HRS PRN PO PAIN Last administered on 01/09/19 08:54; Start 01/07/19 at 17:00 Insulin Glargine (Lantus) 8 units QHS SQ Last administered on 01/09/19 09:07; Start 01/09/19 at 08:30 Insulin Human Lispro (HumaLOG) 2 units TIDAC SQ Last administered on 01/09/19at 09:07; Start 01/09/19 at 08:30 Active Scripts Active Hydrocodone-Apap 7.5-325 (Hydrocodone Bit/Acetaminophen) 1 Tab Tablet 1 Tab PO PRN Q4HRS PRN 6 Days Reported Glipizide 5 Mg Tablet 0.5 Tab PO DAILYWBKFT Zytiga (Abiraterone Acetate) 250 Mg Tablet 1,000 Mg PO DAILY Vitamin B-12 (Cyanocobalamin (Vitamin B-12)) 1,000 Mcg Tablet 1 Tab PO DAILY Rapaflo (Silodosin) 8 Mg Capsule 4 Mg PO DAILY Multivitamins (Multivitamin) 1 Each Tablet 1 Tab PO DAILY Lisinopril 10 Mg Tablet 1 Tab PO DAILY Ferrous Sulfate 325 Mg Tablet 325 Mg PO DAILYWBKFT Famotidine 20 Mg Tablet 20 Mg PO HS Clopidogrel (Clopidogrel Bisulfate) 75 Mg Tablet 75 Mg PO DAILY Coreg (Carvedilol) 6.25 Mg Tablet 6.25 Mg PO BID Atorvastatin Calcium 40 Mg Tablet 40 Mg PO DAILY Aspirin Ec (Aspirin) 81 Mg Tablet.dr 81 Mg PO DAILY Vitals/I & O Vital Sign - Last 24 Hours 01/08/19 01/08/19 01/08/19 01/08/19 09:50 11:00 15:00 17:04 Temp 98.1 98.1 98.1 98.1 Pulse 65 75 81 81 Resp 18 16 B/P (MAP) 142/69 125/67 (86) 154/66 (95) 154/66 Pulse Ox 96 95 O2 Delivery Room Air Room Air 01/08/19 01/08/19 01/08/19 01/08/19 17:04 18:04 19:00 20:00 Temp 97.8 97.8 Pulse 69 Resp 16 16 18 B/P (MAP) 151/70 (97) Pulse Ox 92 O2 Delivery Room Air Room Air Room Air 01/08/19 01/08/19 01/08/19 01/09/19 22:20 23:00 23:20 02:57 Temp 97.9 98.0 97.9 98.0 Pulse 68 67 Resp 18 18 B/P (MAP) 122/80 (94) 150/81 (104) Pulse Ox 92 98 98 94 O2 Delivery Room Air Room Air Room Air Room Air 01/09/19 01/09/19 01/09/19 01/09/19 07:10 08:54 08:54 08:57 Temp 98.3 98.3 Pulse 50 64 64 Resp 18 B/P (MAP) 153/75 (101) 153/75 153/75 Pulse Ox 97 O2 Delivery Room Air Room Air Intake and Output 01/08/19 01/08/19 01/09/19 14:59 22:59 06:59 Output Total 1150 ml 375 ml Balance -1150 ml -375 ml MITCHELL MAYFIELD MD Jan 09, 2019 09:16
[2019-01-09 11:00] VITALS: BP 151/78
--- NOTE | 2019-01-09 11:48 | NUR ---
ANDREA following. Discussed with RN. Pt faxed discharge paperwork to [facility], pt will be picked up at 1300. SW left voicemail for pt's , Chana. SW met with pt to have choice and rights letter signed, pt reported he cant sign and would like his to sign. SW awaiting arrival of pt's . RN notified.
--- NOTE | 2019-01-09 12:01 | NUR ---
FSBS 171, pt refusing to eat lunch at this time, states that he is not hungry and doesn't really like our food here. Pt is to transfer to [facility] at 1300 today, wants to wait to eat until he gets there. Insulin non-administered, will continue to monitor.
--- NOTE | 2019-01-09 13:13 | NUR ---
Report called to DENY De León at R [phone]. Pt stable at time of dc. Pt dc by luna peraza, and brother at bedside at time of dc. Belonging with family.
[2019-01-12 19:11] LABS: ANA INTERP Negative (.)
[2019-01-13 08:35] LABS: ALBUM 3.1 g/dL (2.9-4.4); ALPHA 1 0.3 g/dL (0.0-0.4); ALPHA 2 0.7 g/dL (0.4-1.0); GAMMA 0.9 g/dL (0.4-1.8); SPEP AG RATIO 1.1 (0.7-1.7)
--- NOTE | 2019-01-28 22:39 | PDOC3 ---
Discharge Summary Visit Information Date of Admission: Jan 06, 2019 Date of Discharge: Jan 09, 2019 Admitting Diagnosis: Right wrist fracture Final Diagnosis Problems Medical Problems: (1) Fall Status: Acute (2) Right wrist fracture Status: Acute (3) Weakness generalized Status: Acute Brief Hospital Course Allergies Allergies Coded Allergies Type Severity Reaction Last Updated Verified No Known Drug Allergies 06/13/14 No Brief Hospital Course 83 yo w/ PMHx prostate cancer, DM2, HTN, CAD, prior CVA who presents with wrist pain after a fall. Patient stated he was getting up to go to the bathroom at home and lost his balance while reaching for his walker. He fell towards the wall, held his hand out to catch himself, and fell down onto the floor on his outstretched right hand. The pain is located on the left ulnar headache and slightly medial. He rated the pain as a 10/10 throbbing pain that does not radiate. Patient does not remember hitting his head or losing consciousness. He did have a stroke affecting the left side of his body several years ago, treated at , with resolution of symptoms. There is no history of seizure or head injury. Seen by ortho and neurology. Was found with right wrist fracture - non- operative at this point, will increase hydrocodone to 7.5mg. Ortho consulted. Cont sling. OT to see. PT as well Fall - with prior CVA, neurology to see outpatient, no new CVA, PT as well Prostate cancer - on maintenance therapy DM2 - sliding scale in house HTN - cont meds CAD - cont meds, stable, history of stenting Will need full skilled rehab services on d/c. Was discharged to SNF. Greater than 30 minutes spent on discharge Discharge Information Condition at Discharge: Improved Follow Up: Weeks (1) Disposition/Orders: D/C to Home Scheduled Abiraterone Acetate (Zytiga) 250 Mg Tablet, 1,000 MG PO DAILY for chemotherapy, (Reported) Entered as Reported by: JUAN PABLO GILL on 01/07/19551 Last Action: Converted on 01/07/19801 by RUBI NORIEGA MD Aspirin (Aspirin Ec) 81 Mg Tablet.dr, 81 MG PO DAILY for vascular health, ( Reported) Entered as Reported by: JUAN PABLO GILL on 01/07/19523 Last Action: Continued on 01/07/19801 by RUBI NORIEGA MD Atorvastatin Calcium (Atorvastatin Calcium) 40 Mg Tablet, 40 MG PO DAILY for high cholesterol, #30 Ref 0 (Reported) Entered as Reported by: JUAN PABLO GILL on 01/07/19523 Last Action: Continued on 01/07/19801 by RUBI NORIEGA MD Carvedilol (Coreg ) 6.25 Mg Tablet, 6.25 MG PO BID for hypertension, ( Reported) Entered as Reported by: JUAN PABLO GILL on 01/07/19523 Last Action: Continued on 01/07/19801 by RUBI NORIEGA MD Clopidogrel Bisulfate (Clopidogrel) 75 Mg Tablet, 75 MG PO DAILY for stroke prevention, #30 Ref 0 (Reported) Entered as Reported by: JUAN PABLO GILL on 01/07/19523 Last Action: Continued on 01/07/19801 by RUBI NORIEGA MD Cyanocobalamin (Vitamin B-12) (Vitamin B-12) 1,000 Mcg Tablet, 1 TAB PO DAILY for vitamin replacement, #30 Ref 5 (Reported) Entered as Reported by: JUAN PABLO GILL on 01/07/19551 Last Action: Continued on 01/07/19801 by RUBI NORIEGA MD Famotidine (Famotidine) 20 Mg Tablet, 20 MG PO HS for heartburn prevention, ( Reported) Entered as Reported by: JUAN PABLO GILL on 01/07/19551 Last Action: Continued on 01/07/19801 by RUBI NORIEGA MD Ferrous Sulfate (Ferrous Sulfate) 325 Mg Tablet, 325 MG PO DAILYWBKFT for anemia , (Reported) Entered as Reported by: JUAN PABLO GILL on 01/07/19551 Last Action: Continued on 01/07/19801 by RUBI NORIEGA MD Glipizide (Glipizide) 5 Mg Tablet, 0.5 TAB PO DAILYWBKFT for diabetes, #60 Ref 3 (Reported) Entered as Reported by: JUAN PABLO GILL on 01/07/19551 Last Action: Continued on 01/07/19801 by RUBI NORIEGA MD Lisinopril (Lisinopril) 10 Mg Tablet, 1 TAB PO DAILY for hypertension, #30 Ref 5 (Reported) Entered as Reported by: JUAN PABLO GILL on 01/07/19551 Last Action: Continued on 01/07/19801 by RUBI NORIEGA MD Multivitamin (Multivitamins) 1 Each Tablet, 1 TAB PO DAILY for vitamin replacement, #90 Ref 3 (Reported) Entered as Reported by: JUAN PABLO GILL on 01/07/19551 Last Action: Converted on 01/07/19801 by RUBI NORIEGA MD Silodosin (Rapaflo) 8 Mg Capsule, 4 MG PO DAILY for urinary retention, (Reported ) Entered as Reported by: JUAN PABLO GILL on 01/07/19551 Last Action: Converted on 01/07/19801 by RUBI NORIEGA MD Scheduled PRN Hydrocodone Bit/Acetaminophen (Hydrocodone-Apap 7.5-325 ) 1 Tab Tablet, 1 TAB PO PRN Q4HRS PRN for PAIN for 6 Days, #18 Prescribed by: RUBI NORIEGA MD on 01/08/19 1201 RUBI NORIEGA MD Jan 28, 2019 22:39
== END 2019-01-09 13:10 | DRG 543 ==
LOC: ER 18:05 → 4 NORTH 22:24
PROVIDERS: ADMIT Internal Medicine; ATTEND Internal Medicine
PROC: 2W3CX1Z Immobilization of Right Lower Arm using Splint (ICD-10-PCS; principal; 2019-01-06)
DX: M80.031A Age-related osteoporosis with current pathological fracture, right forearm, initial encounter for fracture (principal); E44.0 Moderate protein-calorie malnutrition; W01.0XXA Fall on same level from slipping, tripping and stumbling without subsequent striking against object, initial encounter; I10 Essential (primary) hypertension; I25.10 Atherosclerotic heart disease of native coronary artery without angina pectoris; E11.40 Type 2 diabetes mellitus with diabetic neuropathy, unspecified; C61 Malignant neoplasm of prostate; E78.00 Pure hypercholesterolemia, unspecified; E78.5 Hyperlipidemia, unspecified; J45.909 Unspecified asthma, uncomplicated; K21.9 Gastro-esophageal reflux disease without esophagitis; Z82.49 Family history of ischemic heart disease and other diseases of the circulatory system; Z85.46 Personal history of malignant neoplasm of prostate; Z86.73 Personal history of transient ischemic attack (TIA), and cerebral infarction without residual deficits; Z95.5 Presence of coronary angioplasty implant and graft; Z79.899 Other long term (current) drug therapy; Z83.3 Family history of diabetes mellitus; T38.0X5A Adverse effect of glucocorticoids and synthetic analogues, initial encounter
CPT/HCPCS: 29125; 36415; 70450; 72125; 73110; 80048; 80053; 81001; 82306; 82607; 82962; 83036; 83735; 84165; 84443; 84484; 85025; 85610; 85651; 85730; 86038; 96361; 96374; J1644; J1815; J3010; J3475; J7030; 97110; 97116; 97535; 99285-25